=== PATIENT | female | born 1990 | race Caucasian/White ===

== ENCOUNTER 2024-05-04 09:55 | Emergency (ER) | payer OTHER, SELFPAY ==
[2024-05-04 10:00] VITALS: BP 141/80; PULSE 74; RESP 16; TEMP 36.6; O2SAT 94; BMI 48.6
--- OUTSIDE RECORDS SUMMARY | 2024-05-04 11:13 | XMS_ITS | Clinical Summary ---
Author Organization [facility] Address [address] [facility] [place] [address] Care Team Providers Care Loan Review Officer Name Role Phone Casandra Lopez PA-C Primary Care Provider [phone] Allergies Active Allergy Reactions Criticality Noted Date Comments Niacin Other (See Comments) 01/12/2018 Other reaction(s): Flushing Seasonal Allergies 02/04/2021 Shellfish Allergy 09/29/2016 Other reaction(s): Edema facial Medications Medication Sig Dispensed Refills Start Date End Date Status TRAZODONE HCL PO Take 50 mg by mouth At Bedtime Active acetaminophen-caffein e (EXCEDRIN TENSION HEADACHE) 500-65 MG TABS Take 2 tablets by mouth every 6 hours as needed for mild pain Active PROPRANOLOL HCL PO Take 160 mg by mouth every morning Extended release Active SERTRALINE HCL PO Take 200 mg by mouth every evening Active BusPIRone HCl (BUSPAR PO) Take 20 mg by mouth every evening Active Ezetimibe (ZETIA PO) Take 10 mg by mouth At Bedtime Active rosuvastatin (CRESTOR) 40 MG tablet Take 40 mg by mouth At Bedtime Active medroxyPROGESTERone (PROVERA) 10 MG tablet Take 20 mg by mouth 2 times daily Active Ferrous Sulfate 324 (65 Fe) MG TBEC Take 325 mg by mouth daily Active albuterol (PROAIR HFA/PROVENTIL HFA/VENTOLIN HFA) 108 (90 BASE) MCG/ACT Inhaler Inhale 1-2 puffs into the lungs every 2 hours as needed for shortness of breath / dyspnea or wheezing Active Active Problems No known active problems Social History Tobacco Use Types Packs/Day Years Used Date Smoking Tobacco: Never Smokeless Tobacco: Never Alcohol Use Standard Drinks/Week Comments Not Currently 0 (1 standard drink = 0.6 oz pur e alcohol) Adolescent Education Answer Date Record ed Getting School Help Needed Not on file 07/16 Sex and Gender Information Value Date Recorded Sex Assigned at Not on file Gender Identity Not on file Sexual Orientation Not on file Last Filed Vital Signs Vital Sign Reading Time Taken Comments Blood Pressure 158/65 02/04/2021 1:21 PM CDT Pulse 79 02/04/2021 1:21 PM CDT Temperature 36.5 ??C (97.7 ??F) 02/04/2021 1:21 PM CD T Respiratory Rate 16 02/04/2021 1:21 PM CDT Oxygen Saturation 97% 02/04/2021 1:21 PM CDT Inhaled Oxygen Concentration - - Weight 122.9 kg (271 lb) 02/04/2021 8:39 AM CDT Height 172 cm (5' 7.72) 02/04/2021 8:39 AM CDT Body Mass Index 41.55 02/04/2021 8:39 AM CDT Plan of Treatment Not on file Medical Devices Implanted Type Area Diversified Crops Farmworker Device Identifier Shelf Expiration Date Model / Serial / Lot Iud Contraceptive Device Mirena [id number] Implanted:Qty: 1 on 02/04/2021 by Radha Dover MD at [facility] Contraceptive Device N/A: Vagina TIMOTHY 06/15/2023 [id number] / / [id number] Care Teams Loan Review Officer Relationship Specialty Start Date End Date Casandra Lopez PA-C PCP - General 02/04/21
--- OUTSIDE RECORDS SUMMARY | 2024-05-04 11:13 | XMS_ITS | Data Portability ---
Author Organization [facility], [id number] Address [address] [place] [address] Assessment No assessment recorded. Plan of Treatment Reminders Order Date Submit Date Provider Last Modified By Organization Details Last Modified Time Details Appointments None recorded. Lab hemoglobin (Hb), blood [address] [facility], [address] [place], [address], 22:52:[address] [facility], [address] [place], [address], 15:41:06 Referral None recorded. Procedures None recorded. Surgeries None recorded. Imaging US, transvagina l 2020 021 [id number], [address], [place], [address], 17:45:16 Medication Orders Provera 10 mg tablet 2020 021 [id number], [address], [place], [address], 12:31:43 Provera 10 mg tablet 2020 021 [id number], [address], [place], [address], 12:31:43 Patient TargetsNo targets recorded. Patient InstructionsNo instructions recorded. Reason for Referral None Reported. Results Created Date Observation Date Name Description Value Unit Range Abnormal Flag LastModifiedBy Organization Detail LastModifiedTime 01/22/20 21 01/21/2021 hemog lobin (Hb), blood hemoglobin 8.6 gm/dL 12.0-1 6.0 low Not Available [facility] [address] [place], [address], 01/21/2021 22:52:30 02/19/20 21 02/18/2021 CBC WBC 6.0 K/uL 4.3-10 .8 Not Available [facility] [address] [place], [address], 02/18/2021 15:41:06 02/19/20 21 02/18/2021 CBC RBC 4.21 M/uL 4.20-5 .40 Not Available [facility] [address] [place], [address], 02/18/2021 15:41:06 02/19/20 21 02/18/2021 CBC hemoglobin 10.1 gm/dL 12.0-1 6.0 low Not Available [facility] [address] [place], [address], 02/18/2021 15:41:06 02/19/20 21 02/18/2021 CBC hematocrit 33.6 % 36.0-4 8.0 low Not Available [facility] [address] [place], [address], 02/18/2021 15:41:06 02/19/20 21 02/18/2021 CBC MCV 80 fL 80-100 Not Available [facility] [address] [place], [address], 02/18/2021 15:41:06 02/19/20 21 02/18/2021 CBC MCH 24 pg 27-33 low Not Available [facility] [address] [place], [address], 02/18/2021 15:41:06 02/19/20 21 02/18/2021 CBC MCHC 30 gm/dL 33-36 low Not Available [facility] [address] [place], [address], 02/18/2021 15:41:06 02/19/20 21 02/18/2021 CBC RDW 17.2 % 11.5-1 4.5 high Not Available [facility] [address] [place], [address], 02/18/2021 15:41:06 02/19/20 21 02/18/2021 CBC platelet count 267 K/uL 150-40 0 Not Available [facility] [address] [place], [address], 02/18/2021 15:41:06 02/19/20 21 02/18/2021 CBC MPV 10.7 6.5-12 Not Available [facility] [address], [address], 02/18/2021 15:41:06 01/29/20 21 US, trans vagin al No observ ation record ed. [email or web address] [address], [place], [address], 02/03/2021 09:49:36 Result Notes None recorded. 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 TRIMMING INSPECTOR 02/09/2021 23:58:39 09/15/20 20 Date of Last Pap Smear completed Jessica Will null, [facility] TRIMMING INSPECTOR 01/21/2021 16:05:04 10/16/19 18 Tonsillectomy completed Jessica Will null, [facility] TRIMMING INSPECTOR 01/21/2021 16:12:17 10/16/19 16 open stone operation on kidney or renal pelvis completed Jessica Will null, [facility] TRIMMING INSPECTOR 01/21/2021 16:12:07 10/16/19 08 extraction of wisdom tooth completed Jessica Will null, [facility] 01/21/2021 16:12:28 Imaging Results Imaging Date Name Status LastModified by Organization Details LastModified Time 01/28/2021 US, transvaginal completed [email or web address] [address], [place], [address], 02/03/2021 09:49:36 Procedure Notes None recorded. Medical Equipment None Reported. Allergies Allergen ID Allergen Name Allergen Category Reaction Reaction Severity Criticality Documentation Date Start Date Code Code System Note Provider Name and Address Organization Details Recorded Time niacin medicatio n flushing Not available Not available 01/21/2021 7393 RxNorm Jessica Will null, [facility] TRIMMING INSPECTOR 15:30:44 Medications Name Sig Start Date Stop Date Status Note LastModified by Organization Details LastModified Time bp monitor auto wri mis micr USE TO CHECK BLOOD PRESSURE 01/21 completed Not Available Not Available Not Available Mirena 21 mcg/24 hr (up to 8 years) 52 mg intrauterin e device Take by intrauter ine route. 2020 active Not Available Not Available Not Avai lable propranolol ER 160 mg capsule,24 hr,extended release Take 1 capsule by mouth once daily active Not Available Not Available No t Available trazodone 50 mg tablet Take 1 tablet by mouth at bedtime active Not Available Not Available No t Available sertraline 100 mg tablet Take 2 tablets by mouth once daily active Not Available Not Available No t Available phentermine 37.5 mg tablet TAKE 1/2 TABLET BY MOUTH DAILY IN THE MORNING 30 MINUTES BEFORE BREAKFAST . 01/21 completed Not Available Not Available Not Available buspirone 10 mg tablet Take 2 tablets by mouth 2 times daily active Not Available Not Available No t Available Provera 10 mg tablet take 1 tablet daily for 30 days 02/18 completed Not Available Not Available Not Available Ventolin HFA 90 mcg/actuati on aerosol inhaler Inhale 1-2 Puffs by mouth every 6 hours if needed. active Not Available Not Available No t Available ezetimibe 10 mg tablet TAKE ONE TABLET BY MOUTH DAILY active Not Available Not Available No t Available rosuvastati n 40 mg tablet TAKE ONE TABLET BY MOUTH AT BEDTIME active Not Available Not Available No t Available Vitals Date Recorded Body weight Body mass index (BMI) Body height Systolic blood pressure Diastolic blood pressure Provider Name and Address Organization Details Last Updated DateTime 01/21/2021 436124.4 9 g 44.2 kg/m2 170.18 cm 140 mm[Hg] 86 mm[Hg] Jessica Cedillo TRIMMING INSPECTOR 15:29:49 Date Recorded Body height Systolic blood pressure Diastolic blood pressure Provider Name and Address Organization Details Last Updated DateTime 01/28/2021 170.18 cm 120 mm[Hg] 84 mm[Hg] Jessica Cedillo TRIMMING INSPECTOR 01/28/2021 09:36:41 Date Recorded Body height Body mass index (BMI) Body weight Systolic blood pressure Diastolic blood pressure Provider Name and Address Organization Details Last Updated DateTime 02/18/2021 170.18 cm 43.1 kg/m2 474911.9 g 122 mm[Hg] 74 mm[Hg] Laura Carreon( TERM) [facility] [employer]IMMING INSPECTOR 10:44:15 Social History Question Answer Notes LastModified by Organizat ion Details LastModified Time Tobacco Smoking Status Never Smoker [facility]M[facility] INSPECTOR 01/21/2021 16:08:27 What Is Your Level Of Alcohol Consumption? Occasional 0-1dr/wk Information not available 01/21/2021 What Is Your Level Of Caffeine Consumption? Moderate 1c/day Information not available 01/21/2021 Which Illicit Or Recreational Drugs Have You Used? 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 None Information not available 01/21/2021 Mental Status None recorded. Family History Relationship Description Onset Age of this Age Resolved Age Notes Paternal Grandmother Malignant tumor of breast Father Depressive disorder Father Diabetes mellitus Un howard Father Hypertensive disorder Uncle Father Hypercholesterolemia Brother Depressive disorder Uncle Brother Hypercholesterolemia Maternal Grandfather Hypertensive disorder Maternal Grandfather Hypercholesterolemia Paternal Grandfather Hypertensive disorder Paternal Grandfather Hypercholesterolemia Maternal Grandmother Cerebrovascular accident Mother Disorder of thyroid gland Mother Hypercholesterolemia Medical History Condition Response Psych- Depression Y Urology- Stones Y Psych- Anxiety Disorder Y Neurology- Headaches/Migraines Y Endocrinology- Thyroid Problems Y Cardiology- High Cholesterol Y Pulmonary- Asthma Y Gynecological History Statement/Question Response Current Control Method None Date of Last Pap Smear 09/15/2020 Age at Menarche: 11 Date of Last Cholesterol Screening 09/15 Date of LMP 11/20/2020 Obstetrics History GPAL:G 0 P 0 0 0 0 Immunizations Vaccine Type Date Status Provider Name and Address Organization Details Recorded Time SARS-COV-2 (COVID-19) vaccine, UNSPECIFIED 11/16/2020 [facility] Ibarra TRIMMING INSPECTOR 01/21/2021 15:25:31 SARS-COV-2 (COVID-19) vaccine, UNSPECIFIED 10/16/2020 [facility] Ibarra TRIMMING INSPECTOR 01/21/2021 15:25:42 Past Encounters Encounter ID Performer Location Encounter Start Date Encounter Closed Date Diagnosis/Indication Diagnosis SNOMED-CT Code [id number] [facility]LLY MD [id number] ,[address] [place] [address] 01/21/2021 15:21:42 01/21/2021 16:40:31 Abnormal uterine bleeding 10603306801268 Obesity 920192590 History of Graves' disease 385441832239955 [id number] DAMON JOLLY MD [id number] [address] [place] [address] 01/28/2021 08:34:23 02/01/2021 17:45:15 Abnormal uterine bleeding 13626912384548 [id number] DAMON JOLLY MD [id number] [facility] [address] [place] [address] 01/28/2021 09:30:28 01/28/2021 15:38:58 Abnormal uterine bleeding 73526500951020 Obesity 314799451 [id number] DAMON JOLLY MD [id number] [facility] [address] [place] [address] 02/18/2021 10:36:12 02/18/2021 12:49:00 Anemia 338794599 Postoperative visit 2450 05403 Health Concerns Section Related Observation LastModified by Organization Detai ls LastModified Time None Recorded Concern Status LastModified by Organization Details LastModified Time None Recorded Advance Directives Directive None Recorded Payers Encounter Date Sequence Insurance Name Policy Number Policy Mayo Covered Member ID Mayo Member ID Guarantor Name 01/21/2021 1 PREFERREDONE (PPO) [id number] Celsa Tyson [id number] Celsa Tyson 01/28/2021 1 PREFERREDONE (PPO) [id number] Celsa Tyson [id number] Celsa Tyson 01/28/2021 1 PREFERREDONE (PPO) [id number] Celsa Tyson [id number] Celsa Tyson 02/18/2021 1 PREFERREDONE (PPO) [id number] Celsa Tyson [id number] Celsa Tyson Notes Date Note Type Note Provider Name and Address Organization Details Recorded Time 01/21/2021 text/html HPI Notes: Abnor mal Bleeding ([facility]) Reported by patient. Patient Relationship with Practice: new patient Presents for: a new evaluation Reason for visit: abnormal pattern bleeding Last Normal Menses: 12/2019 (one year ago) Frequency of Normal Menses: irregular Flow of Normal Menses: Duration: >7 days; Quantity: heavy; no menses x1 year, now has had bleeding x56 days Pattern of Abnormal Bleeding: heavy periods; bleeding between periods; Flow: heavy Bleeding requires: a pad/tampon change every 2 hours Abnormal bleeding has been present for: days; 2 months; 56 days Context: first episode of abnormal bleeding Contraceptive Method: nothing; not sexually active x5 yrs Diagnostic Testing: PAP smear up to date: up-to-date Associated Signs & Symptoms: dizziness; uncertain if symptoms due to recent start of weight-loss agent Previous and Current Treatments: none Modifying Factors: no modifying factors Notes: Previously regular periods. Last normal period was one year ago 12/2019. Period started in October for 20 days, then stopped x5 days, then restarted and has been bleeding since. Has passed clots the size of a baseball. Has had bleeding x56 days. Changing tampons every 2 hours. Was having to use two tampons at a time. At night using pads. Had physical 09/2020. TSH normal. Not sexually active x5 years. Prior to a year ago periods were very regular- was on OCPs on and off for acne. Even off control pills had regular periods. Was thinking of restarting control pills- but was told she couldn't due to migraines with aura. Started a weight loss regimen so now losing weight. Otherwise weight has been slowly increased over last 10 years. Grave's disease- 2019 went into remission and has not needed medications, last checked 4 months ago and was normal. [place] [address] [facility],[address], [place], [address], [place] [facility] TRIMMING INSPECTOR 01/21/2021 16:33:27 01/28/2021 text/html HPI Notes: 30yo G0 here for follow-up after ultrasound for abnormal uterine bleeding. 01/21/21 visit: Office visit for prolonged bleeding x56 days, heavy. Previously with regluat periods but then went almost a year without a period. Had been on OCPs on and off, had to stop due to migraine with aura. On a weight loss regimen as weight has increased over last 10 years. Hx Grave's disease but in remission, recent normal labs. Had physical 09/2020. TSH normal. Not sexually active x5 years. Started on provera and iron supplement. Hgb returned at 8.6. 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 Continuing on provera. Feeling less lightheaded today. US: 8.3 cm anteverted uterus with 14 mm EMS, possible 1.3 cm polyp with feeder vessel. Right ovary normal. Left ovary with 4.7 cm simple cyst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 Procedure Date: 02/04/21 Surgical Procedure: dilation and curettage; hysteroscopy; placement of Mirena IUD Pathology: surgical findings and pathology reviewed; Polyp was suspected, on hysteroscopy lining appeared diffusely thickened but no polyp seen. Pathology benign polyp, benign endometrium. Postoperative Symptoms: none; no fever; no chills; no fatigue; no shortness of breath; no chest pain; no nausea; no vomiting; no dysuria; no pelvic pain; no abnormal bleeding; minimal bleeding/discharge since surgery Postoperative Complications: none Notes: Very happy with decrease/cessation of bleeding [place] [id number] [address] [facility],[address], [place], [address], [place] [facility] TRIMMING INSPECTOR 02/18/2021 12:39:20 OBGyn Episode No OBEpisode recorded.
--- OUTSIDE RECORDS SUMMARY | 2024-05-04 11:13 | XMS_ITS | Clinical Summary ---
Author Organization [employer] [facility] Address [place], [place] [address] Care Team Providers Care Manager Clinical Applications Name Role Phone Rhina Hernandez MD Unavailable Patricia Flowers MD Unavailable Unavailable Edinson Burrell Unavailable [phone] Tara Allison WAREHOUSING TECHNICIAN Unavailable UnaDiann Henry RD Unavailable [phone] Tiffanie Bee Unavailable Liyah Pyle RD Unavailable Unavailab Carolina Alcaraz WAREHOUSING TECHNICIAN Unavailable Unavailable Casandra Lopez Unavailable [phone] Casandra Lopez Primary Care Provider [phone] Marj Ryder PROJECT DESIGN ENGINEER Unavailable Rachel Enriquez RD Unavailable Thuan Alexis RN Unavailable Becky Aquino RN Unavailable Allergies Active Allergy Reactions Criticality Noted Date Comments Niacin Flushing 01/12/2018 Levonorgestrel-Ethinyl Estrad *Unknown 02/02/2021 Shellfish Containing Products Edema 09/29/2016 facial Unlisted Allergen (Include Detail In Comments) Itching 04/13/2010 Seasonal allergies to pollen. Itchy eyes, runny nose and sneezing. Some fruits (bananas, pumpkin) - Itchy mouth Medications Medication Sig Dispensed Refills Start Date End Date Status cetirizine-pseudoephedri ne, 5-120 mg, (ZYRTEC-D) 5-120 mg tablet Take 1 tablet by mouth 2 times daily. 30 tablet 2 0 Active nhendco-mvusmathnzplx-fs ffeine, 250-250-65 mg, (EXCEDRIN MIGRAINE) 250-250-65 mg tablet Take 2 tablets by mouth every 6 hours if needed for Headache. Max acetaminophen dose: 4000mg in 24 hrs. DO NOT TAKE FOR 2 WEEKS POST OP 0 6 Active levonorgestrel intrauterine device (Mirena) 20 mcg/24 hours (6 yrs) 52 mg IUD Mirena 20 mcg/24 hours (6 yrs) 52 mg intrauterine device Take by intrauterine route. 1 Active blood-glucose meterIndications:New onset type 2 diabetes mellitus (HC) Dispense meter covered by patient's insurance. E11.9 NIDDM type II - Test 1 time/day. 1 Kit 3 Active blood sugar diagnostic stripIndications:New onset type 2 diabetes mellitus (HC) Dispense item covered by pt ins. E11.9 NIDDM type II - Test 1 time/day. 100 Each 3 3 Active lancetsIndications:New onset type 2 diabetes mellitus (HC) Dispense item covered by pt ins. E11.9 NIDDM type II - Test 1 time/day. 100 Each 3 3 Active semaglutide (OZEMPIC) 1 mg/dose (4 mg/3 mL) penIndications:New onset type 2 diabetes mellitus (HC) Inject 1 mg subcutaneous once weekly. 9 mL 1 4 Active albuterol HFA (PRO-AIR; VENTOLIN; PROVENTIL) 90 mcg/actuation inhalerIndications:Exerc ise-induced asthma Inhale 1-2 Puffs by mouth every 6 hours if needed for Wheezing 1st choice. 1 Each 3 4 Active azelastine 0.05% ophthalmic (OPTIVAR) 0.05 % ophthalmic solutionIndications:Tavo rgic conjunctivitis of both eyes Place 1 Drop into both eyes two times daily. 6 mL 1 4 Active busPIRone (BUSPAR) 10 mg tabletIndications:Deprfrancesca luis alberto with anxiety Take 2 Tablets (20 mg) by mouth two times daily. 360 Tablet 1 4 Active sertraline (ZOLOFT) 100 mg tabletIndications:Deprfrancesca luis alberto with anxiety Take 2 Tablets (200 mg) by mouth once daily. 180 Tablet 1 4 Active traZODone (DESYREL) 50 mg tabletIndications:Insomn ia, unspecified type Take 1 Tablet (50 mg) by mouth at bedtime. 90 Tablet 1 4 Active ezetimibe (ZETIA) 10 mg tabletIndications:Famili al hypercholesterolemia Take 1 Tablet (10 mg) by mouth once daily. 90 Tablet 4 Active rosuvastatin (CRESTOR) 40 mg tabletIndications:Famili al hypercholesterolemia Take 1 Tablet (40 mg) by mouth at bedtime. 90 Tablet 4 Active evolocumab (Repatha SureClick) 140 mg/mL subcutaneous pen injectorIndications:Hype rlipidemia, unspecified hyperlipidemia type Inject 1 mL (140 mg) subcutaneous every 2 weeks. 6 mL 4 Active Active Problems Patient Care Coordination No te Formatting of this note migh t be different from the original. Medical Weight Management program binder given to patient on 11/04/2020. [place] LPN 11/16/20 3:[address] consult order entered 11/04/20. MW UTD 07/23/18 291 (5'7; 45.63) Problem Noted Date Diagnosed Date Pap smear for cervical cancer screening 03/08/20 24 Overview: 02/2024 NIL/HPV negative. Plan: Pap/HPV due 02/2029. New onset type 2 diabetes mellitus 01/27/2023 FREDY (obstructive sleep apnea) 01/23/2023 Overview: On CPAP Morbid obesity with BMI of 50.0-59.9, adult 06/16 Insomnia 10/15/2021 Allergic conjunctivitis of both eyes 10/15/2021 History of Graves' disease 10/07/2020 Overview: Went into remission, labs normal Aug 2019 Depression with anxiety 10/07/2020 Allergic rhinitis 06/19/2013 Exercise-induced asthma 07/02/2012 Migraine headache 11/10/2009 Vitamin D deficiency 11/10/2009 Acne vulgaris 03/05/2009 Overview: Followed by Audrey Familial hypercholesterolemia Overview: Mook has had high Cholesterol since teenage years with highest LDL on our charts of 299 in 06/2011. She had achilles tendon xanthomas. + family history of severe (>95th percentile) hypercholesterolemia in her mother and brother. + family history of premature coronary artery disease as well. Her Estonian Lipid score is at least 12 (LDL 299, tendon xanthoma, first degree relative with severely high Cholesterol + maternal grandfather with premature coronary artery disease). Follows with Dr. Grayson Hernandez at [facility]. Resolved Problems Problem Noted Date Diagnosed Date Resolved Date Prediabetes 08/02/2022 12/06/2023 Weight gain 07/01/2022 12/06/2023 Graves disease 10/29/2018 10/07/2020 Morbid obesity with BMI of 45.0-49.9, adult 07/23/2018 12/06/2023 Major depressive disorder, r ecurrent episode, moderate 09/01/2014 10/07/2020 Generalized anxiety disorder 09/01/2014 10/07/2020 Abnormal TSH 06/30/2014 06/30/2014 Overview: History of abnormal TSH, but normal since at least 2008. Anemia 06/19/2013 06/30/2014 Overview: Normal since 2008 Mixed hyperlipidemia 07/11/2011 011 Depression with anxiety 04/27/201005/18 Varicella without mention of complication 04/13/2010 06/19/2013 Microcytosis 11/10/2009 06/30/2014 Thyroid function test abnormal 11/10/2009 06/19/2013 Thyroid function test abnormal 11/10/2009 06/30/2014 Bronchial asthma 05/11/2009 07/02/2012 Family history of high cholesterol 01/05/2022 Tonsillitis 10/07/2020 Encounters Date Type Department Care Team Description 04/08/2024 5:30 PM CDT Office Visit [facility] [address] [place] [address] 3, [place] Diabetes Class Telehealth (Virtual class 3) 03/25/2024 5:30 PM CDT Office Visit [facility] [address] [place] [address] 2, [place] Diabetes Class Telehealth (Virtual class 2) 03/25/2024 12:22 PM CDT - 03/25/2024 11:59 PM CDT Hospital Encounter [address] [address] Rhina Hernandez MD Familial hypercholesterolemi a; Bilateral lower extremity edema 03/25/2024 Travel 03/18/2024 5:30 PM CDT Office Visit [facility] [address] [place] [address] 1, [place] Diabetes Class Diabetes (Class 1) 03/14/2024 Refill [facility] [address] [place] [address] Rhina Hernandez MD Refill Request (Repatha) 03/06/2024 Orders Only [facility] Scanner 1 scan: (1-Ord) [facility], 03/06/2024 03/06/2024 Orders Only [facility] Scanner 1 scan: (1-Ord) [facility] , 03/06/2024 03/04/2024 Refill [facility] [address] [place] [address] Rhina Hernandez MD Refill Request (Crestor, Zetia) 03/04/2024 Orders Only [facility] [address] [place] [address] Rhina Hernandez MD <No scans attached> 02/27/2024 8:00 AM CDT Patient Outreach [facility] [address] [place] [address] Becky Aquino RN Telehealth (Virtual Visit - Diabetes Assessment - New Diagnosis Type 2 DM) 02/26/2024 Travel 02/23/2024 8:45 AM CDT Office Visit [facility] [address] [place] [address] Casandra Lopez PA Physical (Fasting ); Medication Management (refill) 02/23/2024 Travel 02/18/2024 Refill [facility] [address] [place] [address] Casandra Lopez PA Refill Request (Ozempic) from Last 3 Months Immunizations Name Administration Dates Next Due COVID-19 Vaccine Spikevax (M oderna 50mcg/0.5mL) 12YO+ [id number] Formula PF 08/11/2023 Covid-19 Vaccine (Unspecified) 11/16/2020,2020 DTP 01/07/1992, 1,1990,11/1989 DTaP 05/29/1995 HIB HbOC (HibTITER) 09/17/1991, 1,01/22/1991,10/17 Hepatitis A (Adult) 11/10/2009 Hepatitis A (Peds) 03/05/2009 Hepatitis B (Peds) 03/28/1997,07/01/1996, 996 Human Papilloma Virus Vaccine 10/26/2007, 007,04/23/2007 06/24/2007 Influenza Virus, Unspecified 07/07/2018,07/16/20 13,07/16/2013 Influenza, IIV3 (Age >=3 years) 07/14/2021 Influenza, IIV4 08/11/2023,,09/17/2020,06/17,07/06/2017,06/14/2016,07/15/20 15 Influenza, Injectable, Mdck, Quadrivalent, W/preservative 07/14/2021 MMR 05/29/1995,09/17/1991 Meningococcal Vaccine (Menactra) 04/23/2007 Oral Polio Vaccine 05/29/1995, 2,01/22/1991,10/17 Pneumococcal Conj 20-valent (Prevnar 20) 01/23/2023 Td (Age >=7 Years) 02/03/2003 Tdap 08/29/2019,06/22/2011 Tuberculin (PPD) 03/26/2018, 7,06/14/2016,06/17,06/03/2009 Family History Medical History Relation Name Comments Anxiety disorder Brother 1 Christofer Colon polyps Brother 1 Christofer Hyperlipidemia Brother 1 Christofer on meds No Known Problems Brother 2 Massimo Depression Father Kodi Diabetes Father Kodi Hyperlipidemia Father Kodi Hypertension Father Kodi Obesity Father Kodi Psychiatric illness Father Kodi anxiety Coronary artery disease Maternal Grandfather shira Heart Disease Maternal Grandfather shira heart attack in his 30s or 40s Hyperlipidemia Maternal Grandfather shira Hypertension Maternal Grandfather shira Stroke Maternal Grandmother Camille Alcoholism Maternal Uncle 1 Yinka Hyperlipidemia Maternal Uncle 1 Yinka Hyperlipidemia Maternal Uncle 2 Allergies Mother Becky Anxiety disorder Mother Becky Depression Mother Becky Diabetes Mother Becky Hyperlipidemia Mother Becky Hypertension Mother Becky Obesity Mother Becky Other Mother Becky mitral valve pr [place] Thyroid Disease Mother Becky Hypothyroidi sm Coronary artery disease Paternal Grandfather Giuseppe Heart attack Paternal Grandfather [place] in his 50-60s Hyperlipidemia Paternal Grandfather Giuseppe Hypertension Paternal Grandfather [place] Cancer-breast Paternal Grandmother Risco Clotting disorder Paternal Grandmother Risco Obesity Paternal Grandmother Risco Other Paternal Grandmother Risco Resp. F ailure Stroke Paternal Grandmother Risco Diabetes Paternal Uncle Nick Type II Anesthesia Problem No Family History Blood Disease No Family History Relation Name Status Comments Brother 1 Christofer Alive Brother 2 Massimo Alive Father Kodi Alive Maternal Grandfather shira (Age 35) Maternal Grandmother Camille (Age 72) Maternal Uncle 1 Yinka Maternal Uncle 2 Mother Becky Alive Paternal Grandfather [place] (Age 67) Paternal Grandmother Risco (Age 72) Paternal Uncle Nick Social History Tobacco Use Types Packs/Day Years Used Date Smoking Tobacco: Never Passive Smoke Exposure: Yes Smokeless Tobacco: Never Tobacco Cessation:Counseling Given: Not Answered Comments:uncle smokes outside Alcohol Use Standard Drinks/Week Comments Yes 0 (1 standard drink = 0.6 oz pure alcohol) every few months, 1-2 drinks per 24h PHQ-2 Answer Date Recorded PHQ-2 TOTAL SCORE 4 02/23/2024 Social Connections Answer Date Recorded Frequency of Communication with Friends and Fami ly Not on file 02/14/2024 Financial Resource Strain Answer Date R ecorded Difficulty of Paying Living Expenses 3 01/23/2023 Difficulty of Paying Living Expenses Not on file 01/23/2023 Food Insecurity Answer Date Recorded Worried About Running Out of Food in the Last Ye ar 1 01/23/2023 Transportation Needs Answer Date Record ed Lack of Transportation (Medical) 1 01/23/2023 Housing Stability Answer Date Recorded Unable to Pay for Housing in the Last Year 1 01/23/2023 Sex and Gender Information Value Date Recorded Sex Assigned at Female 05/18/2021 11:42 PM CDT Gender Identity Female 05/18/2021 11:42 PM CDT Sexual Orientation Straight 05/18/2021 11 :42 PM CDT Obstetrics History Para Term AB IAB SAB Ectopic Multiple Livin g Live Births 0 0 0 0 0 0 0 0 0 0 Last Filed Vital Signs Vital Sign Reading Time Taken Comments Blood Pressure 108/57 02/23/2024 8:52 AM CDT Pulse 81 02/23/2024 8:52 AM CDT Temperature 37.3 ??C (99.1 ??F) 03/02/2022 8:08 AM CD T Respiratory Rate 16 03/20/2023 11:28 AM CDT Oxygen Saturation 96% 01/23/2023 7:41 AM CDT Inhaled Oxygen Concentration - - Weight 153.5 kg (338 lb 8 oz) 02/23/2024 8:52 AM CDT Height 170 cm (5' 6.93) 02/23/2024 8:52 AM CDT Body Mass Index 53.13 02/23/2024 8:52 AM CDT Plan of Treatment Upcoming Encounters Date Type Department Care Team (Late st Contact Info) Description 05/13/2024 8:15 AM CDT Orders Only [facility] [address] [place] [address] 05/15/2024 8:00 AM CDT Office Visit [facility] [address] [facility] [place] [address] Karen Muñoz, ROCHELLE [address] [place] [address] 07/02/2024 4:00 PM CDT Office Visit [facility] [place] [address] [place] [phone] Khadra Wells, WAREHOUSING TECHNICIAN [address] [place], [place] [id number] Health Maintenance Due Date Last Done Comments Influenza for age 9-49 06/16/2024 3, 09/07/2022, 07/14/2021, Additional history exists BMI (ht and wt on same day) for age 18+ 02/22/2025 02/23/2024, 08/11/2023, 01/23/2023, Additional history exists Depression screening for age 12+ 02/22/2025 02/23/2024, 08/11/2023, 01/23/2023, Additional history exists Pap test for age 21-65 02/22/2029 , 02/23/2024, 10/07/2020, Additional history exists Tetanus booster 08/29/2029 08/29/2019, 04/2011, 02/03/2003 Hepatitis B series for Diabetes Completed 03/28/1997, 07/01/1996, 05/30/1996 Tdap Completed 08/29/2019, 06/22/2011 HIV for age 15-65 Completed 01/23/2023 Hepatitis C screening for ag e 18-79 Completed 01/23/2023 Pneumococcal series for age 6-64 Completed 01/24/20 COVID-19 vaccine series Completed 08/11/20, 11/16/2020, 10/16/2020 Procedures Procedure Name Priority Date/Time Associated Diagnosis Comments ECHO TTE COMPLETE W CONTRAST Routine 03/25/2024 1:24 PM CDT Familial hypercholesterolemia Bilateral lower extremity edema SCAN-EYE EXAM 03/06/2024 12:00 AM CDT SCAN-EYE EXAM 03/06/2024 12:00 AM CDT BASIC METABOLIC PANEL Routine 02/23/2024 9:34 AM CDT Annual physical exam New onset type 2 diabetes mellitus (HC) HEMOGLOBIN A1C Routine 02/23/2024 9:34 AM CDT New onset type 2 diabetes mellitus (HC) SPANISH SPEAKING BABYSITTER THIN PREP PAP SCREEN IMAGED Routine 02/23/2024 9:20 AM CDT Pap smear for cervical cancer screening HPV THIN PREP Routine 02/23/2024 9:20 AM CDT Pap smear for cervical cancer screening LC HIV-1/O/2, 4TH GENERATION Routine 01/23/2023 9:07 AM CDT Screening for HIV (human immunodeficiency virus) LC HCV ANTIBODY RFX TO QUANT PCR Routine 01/23/2023 9:07 AM CDT Encounter for hepatitis C screening test for low risk patient from Last 3 Months or Most Recently Relevant to Health Maintenance Results * ECHO TTE COMPLETE W CONTRAST (03/25/2024 1:24 PM CDT) EJECTION FRACTION 60-65% PROSOLV Anatomical Region Laterality Modality Ultrasound 03/25/2024 12:3 7 PM CDT Narrative 03/25/2024 4:56 PM CDT [address], [place] [address] Main: ? Transthoracic Echo Report MOOK TYSON ID: [id number] Age: 33 : 1990 Ordering Provider: RHINA HERNANDEZ Exam Date: 03/25/2024 12:37 Gender: F Community Health Nurse: JUAN Height: 67 in BSA: 2.53 m?? BP: 114 / 72 Weight: 338 lbs BMI: 52.9 kg/m?? HR: 71 Location: [facility] Rhythm: Normal Sinus Rhythm Procedure Components: 2D imaging with contrast, Color Doppler, Spectral Doppler Indications: Bilateral lower extremity edema; Familial hypercholesterolemia Technical Quality: Fair, Poor Contrast: Definity Constrast Dose (ml): .75 [facility]#: [id number] Final Conclusion Previous Study: 01-02-15 1. Technically challenging echocardiogram. 2. Borderline left ventricular chamber enlargement. Borderline left ventricular wall thickness. No regional wall motion abnormalities. Normal left ventricular systolic function. Estimated left ventricular ejection fraction is 60-65%. 3. Normal right ventricular chamber size. Normal right ventricular systolic function. Right ventricular systolic pressure cannot be estimated due to inability to detect peak tricuspid regurgitation Doppler velocity. 4. No significant valvular heart disease. 5. Normal inferior vena cava with normal inspiratory collapse consistent with normal right atrial pressure. 6. No pericardial effusion. 7. Aortic sinus of Valsalva is normal in size (3.1 cm, ZScore = -0.97). Normal indexed ascending aorta dimension (3.2 cm, 1.3 cm/m??). 8. When compared to the previous echocardiographic report of 01-02-15, there has been no significant change. Estimated EF: 60-65% FINDINGS Left Ventricle Borderline left ventricular chamber enlargement. Borderline left ventricular wall thickness. No regional wall motion abnormalities. Normal left ventricular systolic function. Estimated left ventricular ejection fraction is 60- 65%. Diastolic Function Normal left ventricular diastolic function. Right Ventricle Normal right ventricular chamber size. Normal right ventricular systolic function. Right ventricular systolic pressure cannot be estimated due to inability to detect peak tricuspid regurgitation Doppler velocity. Left Atrium Normal left atrial size. Left atrial volume index is 26.5 ml/m??. Right Atrium Normal right atrial size. Atrial Septum Intact atrial septum. No evidence of inter-atrial shunt by color flow Doppler. Aortic Valve Probably trileaflet aortic valve. No aortic valve stenosis. No aortic valve regurgitation. Mitral Valve Normal mitral valve. No mitral valve regurgitation. Tricuspid Valve Normal tricuspid valve. Trivial tricuspid valve regurgitation. Pulmonic Valve Normal pulmonary valve. No pulmonary valve stenosis. No pulmonary valve regurgitation. Pericardium No pericardial effusion. Aorta Aortic sinus of Valsalva is normal in size (3.1 cm, ZScore = -0.97). Normal indexed ascending aorta dimension (3.2 cm, 1.3 cm/m??). Inferior Vena Cava Normal inferior vena cava with normal inspiratory collapse consistent with normal right atrial pressure. MEASUREMENTS ??(Male / Female) Normal Values 2D MEASUREMENTS AND LV FUNCTION IVS Diastolic Thickness ? 1.1 cm ?< 1.1 cm / < 1.0 cm LV Diastolic Diameter PLAX ?5.5 cm ?4.2 - 5.9 / 3.9 - 5.3 cm LV Diastolic Diameter Index ? 2.18 cm/m?? LVPW Diastolic Thickness ?1 cm ?< 1.1 cm / < 1.0 cm LV Systolic Diameter PLAX ? 3.7 cm LV Systolic Diameter Index ?1.46 cm/m?? LVOT Diameter ? 2.4 cm LVOT Cardiac Output ? 9.54 l/min LVOT Cardiac Index ?3.43 l/min??m?? LVOT Stroke Volume ?134 ml Stroke Volume Index ? 48.3 ml/m?? LA Volume MOD BP ?67 ml LA Volume Index MOD BP ?26.5 ml/m?16 - 34 ml/m?? LV Mass ? 227 g LV Mass Index ? 84.5 g/m?? Sinuses of Valsalva Diameter(d) ?? 3.1 cm Ascending Aorta Diameter(s) ? 3.2 cm IVC Diameter Expiration ? 1.5 cm Ascending Aorta Index ? 1.27 cm/m?? M MODE TAPSE MM ?2.4 cm DIASTOLOGY Mitral E Point Velocity ? 0.913 m/sec ? 0.70 - 1.02 m/sec Mitral A Point Velocity ? 0.51 m/sec ?0.06 - 1.06 m/sec Mitral E to A Ratio ? 1.79 ?1.1 - 2.1 MV Deceleration Time ?218 msec ?167 - 231 msec LV E' Lateral Velocity ?0.117 m/sec Mitral E to LV E' Lateral Ratio ?? 7.8 LV E' Septal Velocity ? 0.0957 m/sec Mitral E to LV E' Septal Ratio ?9.54 AORTIC VALVE AV Peak Velocity ?1.66 m/sec ?< 2.0 m/sec AV Peak Gradient ?11 mmHg AV Mean Gradient ?6 mmHg AV Velocity Time Integral ? 33.7 cm LVOT Peak Velocity ?1.35 m/sec LVOT Velocity Time Integral ? 29.7 cm AV Area Cont Eq vti ? 3.99 cm?? AV Area Cont Eq pk ?3.68 cm?? AV Dimensionless Index ?0.881 TRICUSPID VALVE AND ESTIMATED PRESSURES Right Atrial Pressure ? 3 mmHg HCM DATA LVOT MERY (r) ?7.29 mmHg Aortic Root ZScore: -0.97 Wing Varner MD [facility] Accredited Site (Electronically Signed) Final Date: 25 March 2024 16:55 ICD-10 Codes: R60.0; E78.01 Procedure Note Wing Varner MD - 03/25/[address], [place] [address] Main: Transthoracic Echo Report MOOK TYSON ID: [id number] Age: 33 : 1990 Ordering Provider:RHINA HERNANDEZ Exam Date: 03/25/2024 12:37 Gender: F Community Health Nurse: [facility] Height: 67 in BSA: 2.53 m?? BP: 114 / 72 Weight: 338 lbs BMI: 52.9 kg/m?? HR: 71 Location: [facility] Rhythm: Normal SinusRhythm Procedure Components: 2D imaging with contrast, Color Doppler, SpectralDoppler Indications: Bilateral lower extremity edema; Familialhypercholesterolemia Technical Quality: Fair, Poor Contrast: Definity Constrast Dose (ml): .75 [facility]#: [id number] Final Conclusion Previous Study: 01-02-15 1. Technically challenging echocardiogram. 2. Borderline left ventricular chamber enlargement. Borderline leftventricular wall thickness. No regional wall motion abnormalities. Normal left ventricular systolic function. Estimated left ventricularejection fraction is 60-65%. 3. Normal right ventricular chamber size. Normal right ventricularsystolic function. Right ventricular systolic pressure cannot be estimated due to inability to detect peak tricuspid regurgitation Dopplervelocity. 4. No significant valvular heart disease. 5. Normal inferior vena cava with normal inspiratory collapse consistentwith normal right atrial pressure. 6. No pericardial effusion. 7. Aortic sinus of Valsalva is normal in size (3.1 cm, ZScore = -0.97).Normal indexed ascending aorta dimension (3.2 cm, 1.3 cm/m??). 8. When compared to the previous echocardiographic report of 01-02-15,there has been no significant change. Estimated EF: 60-65% FINDINGS Left Ventricle Borderline left ventricular chamber enlargement.Borderline left ventricular wall thickness. No regional wall motion abnormalities. Normal left ventricular systolic function.Estimated left ventricular ejection fraction is 60- 65%. Diastolic Function Normal left ventricular diastolic function. Right Ventricle Normal right ventricular chamber size. Normal rightventricular systolic function. Right ventricular systolic pressure cannot be estimated due to inability to detect peak tricuspidregurgitation Doppler velocity. Left Atrium Normal left atrial size. Left atrial volume index is 26.5ml/m??. Right Atrium Normal right atrial size. Atrial Septum Intact atrial septum. No evidence of inter-atrial shunt bycolor flow Doppler. Aortic Valve Probably trileaflet aortic valve. No aortic valve stenosis.No aortic valve regurgitation. Mitral Valve Normal mitral valve. No mitral valve regurgitation. Tricuspid Valve Normal tricuspid valve. Trivial tricuspid valveregurgitation. Pulmonic Valve Normal pulmonary valve. No pulmonary valve stenosis. Nopulmonary valve regurgitation. Pericardium No pericardial effusion. Aorta Aortic sinus of Valsalva is normal in size (3.1 cm, ZScore =-0.97). Normal indexed ascending aorta dimension (3.2 cm, 1.3 cm/m??). Inferior Vena Cava Normal inferior vena cava with normal inspiratorycollapse consistent with normal right atrial pressure. MEASUREMENTS (Male / Female) Normal Values 2D MEASUREMENTS AND LV FUNCTION IVS Diastolic Thickness 1.1 cm < 1.1 cm / < 1.0cm LV Diastolic Diameter PLAX 5.5 cm 4.2 - 5.9 / 3.9 -5.3 cm LV Diastolic Diameter Index 2.18 cm/m?? LVPW Diastolic Thickness 1 cm < 1.1 cm / < 1.0cm LV Systolic Diameter PLAX 3.7 cm LV Systolic Diameter Index 1.46 cm/m?? LVOT Diameter 2.4 cm LVOT Cardiac Output 9.54 l/min LVOT Cardiac Index 3.43 l/min??m?? LVOT Stroke Volume 134 ml Stroke Volume Index 48.3 ml/m?? LA Volume MOD BP 67 ml LA Volume Index MOD BP 26.5 ml/m?? 16 - 34 ml/m?? LV Mass 227 g LV Mass Index 84.5 g/m?? Sinuses of Valsalva Diameter(d) 3.1 cm Ascending Aorta Diameter(s) 3.2 cm IVC Diameter Expiration 1.5 cm Ascending Aorta Index 1.27 cm/m?? M MODE TAPSE MM 2.4 cm DIASTOLOGY Mitral E Point Velocity 0.913 m/sec 0.70 - 1.02m/sec Mitral A Point Velocity 0.51 m/sec 0.06 - 1.06m/sec Mitral E to A Ratio 1.79 1.1 - 2.1 MV Deceleration Time 218 msec 167 - 231 msec LV E' Lateral Velocity 0.117 m/sec Mitral E to LV E' Lateral Ratio 7.8 LV E' Septal Velocity 0.0957 m/sec Mitral E to LV E' Septal Ratio 9.54 AORTIC VALVE AV Peak Velocity 1.66 m/sec < 2.0 m/sec AV Peak Gradient 11 mmHg AV Mean Gradient 6 mmHg AV Velocity Time Integral 33.7 cm LVOT Peak Velocity 1.35 m/sec LVOT Velocity Time Integral 29.7 cm AV Area Cont Eq vti 3.99 cm?? AV Area Cont Eq pk 3.68 cm?? AV Dimensionless Index 0.881 TRICUSPID VALVE AND ESTIMATED PRESSURES Right Atrial Pressure 3 mmHg HCM DATA LVOT MERY (r) 7.29 mmHg Aortic Root ZScore: -0.97 Wing [facility] Accredited Site (Electronically Signed) Final Date: 25 March 2024 16:55 ICD-10 Codes: R60.0; E78.01 Rhina Hernandez MD ECHO ORD * SCAN-EYE EXAM (03/06/2024 12:00 AM CDT) Scanner OTHER * SCAN-EYE EXAM (03/06/2024 12:00 AM CDT) Scanner OTHER * (ABNORMAL) HEMOGLOBIN A1C MONITORING (POCT) (02/23/2024 9:34 AM CDT) HEMOGLOBIN A1C MONITORING (POCT) 6.7(H) <=6.4 % 02/23/2024 9:44 AM CDT [facility] Blood BLOOD SPECIMEN / Unknown Venipuncture / Unknown 02/23/2024 9:34 AM CDT 02/23/2024 9:34 AM CDT Narrative [facility] - 02/23/2024 9:44 AM CDT ? (<=6.9%) ? Indicates good control ? (7.0% to 7.9%) ? Indicates fair control ? (>=8.0%) ? Indicates poor control ?? NOTE: ??These thresholds are guidelines and ?individual targets may vary. Falsely low levels may be seen with: Recent Transfusion, Recent Significant Blood Loss, Hemolytic Diseases, or Falsely elevated levels may be seen with: Untreated Anemias, Splenectomy ? Casandra BYRD CHEMISTRY [facility] [address] [place] [address] * (ABNORMAL) BASIC METABOLIC PANEL (02/23/2024 9:34 AM CDT) SODIUM 139 136 - 145 mmol/L 02/23/2024 6:01 PM CDT [facility] POTASSIUM 4.4 3.5 - 5.1 mmol/L 02/23/2024 6:01 PM T [facility] CHLORIDE 103 98 - 107 mmol/L 02/23/2024 6:01 PM T [facility] CO2,TOTAL 24 22 - 29 mmol/L 02/23/2024 6:01 PM CDT [facility] ANION GAP 12 5 - 18 02/23/2024 6:01 PM T [facility] GLUCOSE 128(H) 70 - 99 mg/dL 02/23/2024 6:01 PM T [facility] CALCIUM 9.5 8.6 - 10.0 mg/dL 02/23/2024 6:01 PM T [facility] BUN 7 6 - 20 mg/dL 02/23/2024 6:01 PM T [facility] CREATININE 0.75 0.50 - 0.90 mg/dL 02/23/2024 6:[address] [facility] BUN/CREAT RATIO 9(L) 10 - 20 6:01 PM T [facility] eGFR >90 >90 mL/min/1.7 3m2 02/23/2024 6:01 PM [facility] Comment:As of 2021, eG FR is calculated by the CKD-EPI creatinine equation without race adjustment. ??eGFR can be influenced by muscle mass, exercise, and diet. ??The reported eGFR is an estimation only and is only applicable if the renal function is stable. Blood BLOOD SPECIMEN / Unknown Venipuncture / Unknown 02/23/2024 9:34 AM CDT 02/23/2024 9:34 AM CDT Casandra BYRD CHEMISTRY [facility] [address] [place] [address], * SPANISH SPEAKING BABYSITTER THIN PREP PAP SCREEN IMAGED (02/23/2024 9:20 AM CDT) Case Report Gynecologic Cytology Report ? Case: [id number] ? Authorizing Provider: ??Casandra Lopez PA ? Collected: ? 02/23/2024 0920 ? Ordering Location: ? [facility] ?Received: ?02/23/2024 0946 ? [facility] ? First Screen: ?Baccam, Minie ? Specimen: ?SPANISH SPEAKING BABYSITTER ThinPrep Vial Screening, Cervical ? 03/06/2024 3:33 PM CDT [facility] INTERPRETATION/ RESULT NEGATIVE FOR INTRAEPITHELIAL LESION OR MALIGNANCY (NIL) (none) 03/06/2024 3:33 PM CDT [facility] IMEN ADEQUACY Satisfactory for evaluation Endocervical component present 03/06/2024 3:33 PM CDT [facility] HPV REQUEST HPV and PAP 03/06/2024 3:33 PM CDT [facility] Date of LMP n/a 03/06/2024 3:33 PM CDT [facility] Last Pap Date 10/07/20 03/06/2024 3:33 PM CDT [facility] Last Pap Result NIL 3:33 PM CDT [facility] Abnormal Pap or Maxwell Bx in last 5 years No 03/06/2024 3:33 PM CDT [facility] Menstrual Status Hormonally Suppressed 03/06/2024 3:[address] [facility] Maxwell Bx Done Today No 03/06/2024 3:[address] [facility] Additional Information None given 03/06/2024 3:33 PM CDT [facility] Comment: Cytology is screened at [facility] - [address], [place] [address] and [facility] - [address] [place] [address] and [facility] - [address] [place] [address] Interpreted at [facility] - [address], [place] [address] Automated Review Successful 03/06/2024 3:33 PM CDT [facility] Comment:Specimen processed s uccessfully by automated cart attendant device, ThinPrep Imaging System, [employer] ANCILLARY TESTING SPANISH SPEAKING BABYSITTER HPV Ordered, Please see separate report 03/06/2024 3:[address] [facility] Note The pap test is a screening technique, not a diagnostic procedure. It is used primarily to screen for squamous cancers and precursor lesions. Published studies have shown that it is subject to both false negative and false positive results. The pap test should not be used as the sole means to diagnose or exclude pre-malignant and malignant lesions. 03/06/2024 3:[address] [facility] Other (Cervical) Non-Blood / Unknown 02/23/2024 9:20 AM CDT 02/23/2024 9:46 AM CDT Casandra BYRD PATHOLOGY/CYTOLOGY [facility] [address] [place] [address], * HPV HIGH RISK (02/23/2024 9:20 AM CDT) TYPE 16 Negative Negative 02/27/2024 4:53 PM CDT [facility] TYPE 18 Negative Negative 02/27/2024 4:53 PM CDT [facility] OTHER HIGH RISK TYPES Negative Negative 02/27/2024 4:53 PM CDT [facility] Other (Cervical) Non-Blood / Unknown 02/23/2024 9:20 AM CDT 02/26/2024 9:29 AM CDT Narrative [facility] - 02/27/2024 4:53 PM CDT HPV types 16, 18, 31, 33, 35, 39, 45, 51, 52, 56, 58, 59, 66 and 68 DNA were undetectable or below the pre-set threshold. Methodology: Tez Armando 4800 HPV Test Casandra BYRD MICROBIOLOGY Performing Organization Address City/[facility] Co de Phone Number [facility] [address] [place] [address], * LC HCV ANTIBODY RFX TO QUANT PCR (01/23/2023 9:07 AM CDT) HCV Ab Non Reactive Non Reactive 01/25/2023 10:07 PM CDT [facility] Blood BLOOD SPECIMEN / Unknown Venipuncture / Unknown 01/23/2023 9:07 AM CDT 01/23/2023 9:08 AM CDT Narrative [facility] - 01/25/2023 10:07 PM CDT Performed at: ??[address] ??[id number] Horse Racer: Prabhu Patel MD, Phone: ??[phone] Khadra Garcia MD LABORATORY [facility] ([facility]) [address] [place] [address] * LC HIV-1/O/2, 4TH GENERATION (01/23/2023 9:07 AM CDT) HIV Scr 4th Gen Non Reactive Non Reactive 01/25/2023 10:07 PM CDT [facility] Comment: HIV Negative HIV-1/HIV-2 antibodies and HIV-1 p24 antigen were NOT detected. There is no laboratory evidence of HIV infection. Blood BLOOD SPECIMEN / Unknown Venipuncture / Unknown 01/23/2023 9:07 AM CDT 01/23/2023 9:08 AM CDT Narrative [facility] - 01/25/2023 10:07 PM CDT Performed at: ??[address] ??[id number] Horse Racer: Prabhu Patel MD, Phone: ??[phone] Khadra Garcia MD LABORATORY Performing Organization Address City/[facility]/ZIP Co de Phone Number [facility] ([facility]) [address] [place] [address] from Last 3 Months or Most Recently Relevant to Health Maintenance Advance Directives * Full Code (Latest Code Status on File) Date Activated Date Inactivated Comments 09/30/2016 6:38 AM 10/04/2016 3:58 PM * Full Code Date Activated Date Inactivated Comments 02/25/2015 6:07 AM 02/25/2015 4:21 PM Care Teams Manager Clinical Applications Relationship Specialty [place] [address] [place] [address] PCP - General Physician Meat Inspector 10/26/20 Rhina Hernandez MD [address] [place] [address] Consulting Physician Cardiovascular Disease 12/23/14 Patricia Flowers MD Neurology 07/16/18 Edinson Burrell [address] [address] Dermatology 07/16/18 Tara Allison NP [address] [address] Consulting Physician Nurse Practitioner 07/23/[address] [place] [address] Registered Dietitian Air Cargo Specialist Supervisor 10/29/18 Tiffanie Bee PA [address] [place] [address] Physician's Meat Inspector Cardiovascular Disease 04/22/[address] [place] [address] Registered Dietitian Air Cargo Specialist Supervisor 10/28/20 Carolina Acevedo NP [address] [place] [address] Nurse Practitioner Nurse Practitioner - Family 10/28/20 Casandra Lopez PA [address] [place] [address] Physician's Meat Inspector Physician Meat Inspector 10/26/20 Marj Ryder CNS [address] [facility] [place] [address] Clinical Nurse Specialist 07/01/22 Rachel Enriquez, RD [address] [facility] [address] [place], [place] [address] Air Cargo Specialist Supervisor 07/01/22 Thuan Alexis, RN [address] [facility] [place] [address] Registered Nurse 07/01/22 Becky Aquino, RN [address] [place] [address] Investigative Research Specialist Registered Nurse 02/27/24 08/29/24
--- OUTSIDE RECORDS SUMMARY | 2024-05-04 11:13 | XMS_ITS | Referral Summary ---
Author Organization [place] [facility] Address [address] [place] [address] Care Team Providers Care Inventory Checker Name Role Phone Casandra Lopez PA-C Primary Care Provider [phone] Allergies Active Allergy Reactions Criticality Noted Date [...] on file Medical Devices Implanted Type Area Medical Typist Device Identifier Shelf Expiration Date Model / Serial / Lot Iud Contraceptive Device Mirena [id number] Implanted:Qty: 1 on 02/04/2021 by Radha Dover MD at [facility] Contraceptive Device N/A: Vagina TIMOTHY 06/15/2023 [id number] / / [id number] Care Teams Inventory Checker Relationship Specialty Start Date End Date Casandra Lopez PA-C PCP - General 02/04/21
--- NOTE | 2024-05-04 11:23 | ED.GENADULT ---
HPI - General Adult General Date Seen: 05/04/24 Chief complaint: Nausea/Vomiting Stated complaint: vomiting & diarrhea Time Seen by Provider: 05/04/24 10:39 Source: patient Mode of arrival: ambulatory Limitations: no limitations History of Present Illness HPI narrative: Patient is a 33-year-old woman who comes in with vomiting and diarrhea which she believes is related to Ozempic. She has been on it for few months, reports that initially she had done well but then the pharmacy was out of it for couple of weeks so she was not using it. Last week she started back on it and had 4 days of vomiting and diarrhea afterward. She did not seek medical attention or discussed that with her doctor at that time. She took her 2nd dose on Monday and then overnight night started having vomiting and diarrhea again. She does not have abdominal pain. She denies fevers, rashes, bloody stools, travel, concerning water sources or foods. Related Data Home Medications ?Medication ?Instructions ?Recorded ?Confirmed albuterol sulfate 90 mcg/actuation 2 puff inhalation 08/04/22 08/04/22 aerosol inhaler (Ventolin HFA) azelastine 0.05 % eye drops drp ophthalmic (eye) 08/04/22 08/04/22 buspirone 10 mg tablet 10 mg PO 08/04/22 08/04/22 cefuroxime axetil 500 mg tablet 500 mg PO 08/04/22 08/04/22 ezetimibe 10 mg tablet 10 mg PO 08/04/22 08/04/22 rosuvastatin 40 mg tablet 40 mg PO 08/04/22 08/04/22 sertraline 100 mg tablet 100 mg PO 08/04/22 08/04/22 trazodone 50 mg tablet 50 mg PO 08/04/22 08/04/22 semaglutide 1 mg/dose (4 mg/3 mL) 1 mg subcut 05/04/24 subcutaneous pen injector (Ozempic) Allergies Allergy/AdvReac Type Severity Reaction Status Date / Time No Known Drug Allergies Allergy Verified 08/04/22 12:32 Review of Systems Status of ROS: Reports: 10 or more systems reviewed and unremarkable except as noted in History and below PFSH PFSH Social History Smoking Status: Never smoker Exam Narrative: Exam Narrative: Vital signs as noted above. In general, an alert, well-appearing patient. Head: Normocephalic, atraumatic. Eyes: Pupils are equal reactive. Extraocular movements are full. Conjunctivae are normal. ENT: Mucous membranes are moist. Throat is normal. Neck: Supple without lymphadenopathy. Heart: Regular rate and rhythm. No murmur or rub. Lungs: Clear bilaterally. No increased work of breathing, crackles or wheezes. Abdomen: Soft and nontender. No organomegaly. Extremities: Well perfused. No edema. No calf tenderness. Pulses intact. Neurologic: Patient is alert and oriented to person and place. Speech is fluent. Face is symmetric. Moves all extremities equally. Affect: Normal. Skin: Warm and dry. Well perfused. Const: Vital Signs, click to edit/add: Vital Signs - 24 hr 05/04/24 10:00 05/04/24 12:17 Temperature 97.8 F Pulse Rate [Pulse Oximeter] 74 74 Respiratory Rate 16 16 Blood Pressure [Ri ght Upper Arm] 141/80 H 118/58 L Pulse Oximetry 94 93 Oxygen Delivery Me thod Room Air Room Air Documenting provider has reviewed patient's vital signs: yes Course Course ED Course: Overall, given recurrence of symptoms twice now with Ozempic injection, would suspect this is the cause of her symptoms, but will check some labs, supply requirements officer dehydration, give some fluids and Zofran. Abdominal exam is benign, I do not anticipate needing imaging unless labs are concerning. Patient had 2 L of fluid was ultimately able to provide a urine sample which is negative. Her white blood cell count is essentially normal at 11.1, she does have eosinophilia noted today. It looks as if this can be in rare cases associated with his epic. Her hemoglobin and platelets are normal. Electrolytes are normal, BUN is 9 and creatinine is 0.7. Blood sugars 129. LFTs are normal, CRP minimally elevated at 1.6. test negative. She has had no further vomiting. Has a little bit of persistent nausea but was able to keep some fluids down. I think it is reasonable to let her go home, with symptoms last week and this week following Ozempic injection I do think this is the most likely cause for her symptoms. I have asked her to discuss this further with her prescribing doctor as to whether she wants to continue the Ozempic or not. Recommend clear liquids until she is feeling improved and then can advance diet as able. Return for worsening symptoms such as severe abdominal pain or fevers, persistent vomiting despite treatment. Recommended that she discuss the eosinophilia with her primary doctor so that that can be followed. Vital Signs Vital signs: Initial Vital Signs Temperature 97.8 F 05/04/24 10:00 Temperature Source Temporal Artery Scan 05/04/24 10:00 Pulse Rate 74 05/04/24 10:00 Respiratory Rate 16 05/04/24 10:00 Blood Pressure 141/80 H 05/04/24 10:00 Blood Pressure Mean 100 05/04/24 10:00 Blood Pressure Position Sitting 05/04/24 10:00 Pulse Oximetry 94 05/04/24 10:00 Oxygen Delivery Method Room Air 05/04/24 10:00 Vital Signs Temperature 97.8 F 05/04/24 10:00 Pulse Rate 74 05/04/24 10:00 Respiratory Rate 16 05/04/24 10:00 Blood Pressure 141/80 H 05/04/24 10:00 Pulse Oximetry 94 05/04/24 10:00 Oxygen Delivery Method Room Air 05/04/24 10:00 Temperature 97.8 F 05/04/24 10:00 Pulse Rate 74 05/04/24 12:17 Respiratory Rate 16 05/04/24 12:17 Blood Pressure 118/58 L 05/04/24 12:17 Pulse Oximetry 93 05/04/24 12:17 Oxygen Delivery Method Room Air 05/04/24 12:17 Medications Administered Medications: Discontinued Medications Generic Name Dose Route Start Last Admin Trade Name Freq PRN Reason Stop Dose Admin Sodium Chloride 1,000 mls @ 1,000 mls/hr 05/04/24 11:15 05/04/24 12:16 0.9 % Sodium Chloride 1000 Ml IV 05/04/24 12:14 Infused .Q1H EDIE Infusion Sodium Chloride 1,000 mls @ 1,000 mls/hr 05/04/24 13:15 05/04/24 14:09 0.9 % Sodium Chloride 1000 Ml IV 05/04/24 14:14 Infused .Q1H EDIE Infusion Ondansetron HCl 4 mg 05/04/24 11:01 05/04/24 11:31 Ondansetron 2 Mg/Ml Inj IVP 05/04/24 11:02 4 mg ONCE ONE Administration Medical Decision Making Lab Data Labs: Lab Results 05/04/24 05/04/24 Range/Units 11:25 14:05 WBC 11.10 H (4.50-11.00) K/uL RBC 5.73 H (4.00-5.20) m/uL Hgb 14.9 (12.0-16.0) gm/dL Hct 45.9 (33.0-51.0) % MCV 80 (80-100) fL MCH 26 (26-34) pg MCHC 33 (32-36) gm/dL RDW Coeff of Forrest 14.0 (11.5-15.5) % Plt Count 171 (140-440) K/uL Neut % (Auto) 68.4 (42.0-72.0) % Lymph % (Auto) 14.0 L (20-44) % [place] % (Auto) 5.1 (0.0-11.0) % Eos % (Auto) 11.7 H (0.0-7.0) % Baso % (Auto) 0.0 (0.0-3.0) % Neut # (Auto) 7.60 H (1.7-7.0) K/uL Lymph # (Auto) 1.60 (0.90-2.90) K/uL [place] # (Auto) 0.60 (0.00-0.90) K/UL Eos # (Auto) 1.30 H (0.00-0.50) K/uL Baso # (Auto) 0.00 (0.00-0.30) K/uL Abs Immat Gran (auto) 0.10 (0.00-0.30) K/uL Imm/Tot Granulo (auto) 0.8 % Sodium 139 (135-149) mmol/L Potassium 4.1 (3.6-5.1) mmol/L Chloride 104 (96-114) mmol/L Carbon Dioxide 24 (20-32) mmol/L Anion Gap 11 (7-15) mEq/L BUN 9 (5-24) mg/dL Creatinine 0.7 (0.5-1.5) mg/dL Estimated Creat Clear 111.16 Estimated GFR 117 ml/min Glucose 129 H (60-115) mg/dL Lactate 1.6 (0.5-1.9) mmol/L Calcium 9.7 (8.4-10.6) mg/dL Total Bilirubin 0.8 (0.1-1.5) mg/dL Direct Bilirubin 0.3 (0.0-0.5) mg/dL AST 20 (12-35) U/L ALT 24 (4-35) U/L Alkaline Phosphatase 78 (40-150) U/L C-Reactive Protein 1.6 H (0.5-1.0) mg/dL Total Protein 7.5 (6.0-8.3) g/dL Albumin 4.7 (3.3-5.0) g/dL Lipase 58 (23-300) U/L HCG, Qual Negative (Negative) Urine Color Yellow (Yellow) Urine Appearance Cloudy A (Clear) Urine pH 7.0 (5.0-8.5) Ur Specific Candor 1.010 (1.000-1.030) Urine Protein Negative (Negative) Urine Glucose (UA) Negative (Negative) Urine Ketones Negative (Negative) Urine Blood 1+ A (Negative) Urine Nitrite Negative (Negative) Urine Bilirubin Negative (Negative) Urine Urobilinogen 0.2 (0.2-1.0) Ur Leukocyte Esterase 1+ A (Negative) Urine RBC 2-5 A (0-2) Urine WBC 2-5 (0-5) Ur Squamous Epith Cells Few (None-Few) Urine Bacteria Moderate A (None) Urine HCG, Qual Cancelled Discharge Plan Discharge Clinical Impression: Vomiting and diarrhea, Medication intolerance Patient Disposition: Home, Self-Care Condition: Improved Instructions: Acute Nausea and Vomiting (DC) Additional Instructions: Overall, your labs are reassuring. However, you do have a higher than normal number of eosinophils, a specific type of white blood cell. This can in rare cases be seen with Ozempic, and this is something you should discuss with your primary doctor so this can be followed. I do not think this is directly likely related to the symptoms of vomiting and diarrhea, which are common side effects of Ozempic. You can use Zofran if needed for further nausea. Clear liquids until you are feeling improved and feel you can tolerate solid food. Prescriptions: No Action trazodone 50 mg tablet 50 mg PO Patient Comments: TAKE ONE TABLET BY MOUTH AT BEDTIME sertraline 100 mg tablet 100 mg PO Patient Comments: TAKE TWO TABLETS BY MOUTH DAILY rosuvastatin 40 mg tablet 40 mg PO Patient Comments: Take 1 Tablet by mouth at bedtime ezetimibe 10 mg tablet 10 mg PO Patient Comments: Take 1 Tablet by mouth once daily buspirone 10 mg tablet 10 mg PO Patient Comments: TAKE TWO TABLETS BY MOUTH TWICE DAILY cefuroxime axetil 500 mg tablet 500 mg PO Patient Comments: TAKE 1 TABLET BY MOUTH TWICE DAILY FOR 10 DAYS albuterol sulfate [Ventolin HFA] 90 mcg/actuation HFA aerosol inhaler 2 puff inhalation Patient Comments: Inhale 1-2 Puffs by mouth every 6 hours if needed for Wheezing azelastine 0.05 % drops ophthalmic (eye) Patient Comments: INSTILL ONE DROP INTO EACH EYE TWICE DAILY Ozempic 1 mg/dose (4 mg/3 mL) pen injector 1 mg subcut Follow Up/Referrals: Casandra Lopez PA-C [Primary Care Provider] - Stand Alone [facility]
[2024-05-04] MEDS: ONDANSETRON 2 MG/ML inj 4 MG IVP (11:31)
[2024-05-04] MEDS: 0.9 % SODIUM CHLORIDE 1000 ml 1,000 ML IV ×2 (11:31→13:13)
[2024-05-04 11:38] LABS: Eosinophils Percent Auto 11.7 % (0.0-7.0); Hematocrit 45.9 % (33.0-51.0); Hemoglobin* 14.9 gm/dL (12.0-16.0); Immature Granulocytes Pct Auto 0.8 %; Lactate Sepsis w/Reflex* 1.6 mmol/L (0.5-1.9); Mean Corpuscular HGB Conc 33 gm/dL (32-36); Mean Corpuscular Hemoglobin 26 pg (26-34); Mean Corpuscular Volume 80 fL (80-100); Monocytes Percent Auto 5.1 % (0.0-11.0); Neutrophils Percent Auto 68.4 % (42.0-72.0); Platelet Count* 171 K/uL (140-440); Red Blood Count 5.73 m/uL (4.00-5.20)
[2024-05-04 11:39] LABS: Slide Review Reflex No
[2024-05-04 11:56] LABS: Albumin* 4.7 g/dL (3.3-5.0); Chloride* 104 mmol/L (96-114); Sodium* 139 mmol/L (135-149)
[2024-05-04 11:57] LABS: Potassium* 4.1 mmol/L (3.6-5.1)
[2024-05-04 11:58] LABS: HCG Qualitative Serum* Negative (Negative)
[2024-05-04 11:59] LABS: Creatinine* 0.7 mg/dL (0.5-1.5); Est. Creatinine Clearance* 111.16; Estimated Glomerular Filt Rate 117 ml/min
[2024-05-04 12:00] LABS: Alanine Aminotransferase* 24 U/L (4-35); Alkaline Phosphatase* 78 U/L (40-150); Anion Gap 11 mEq/L (7-15); Aspartate Amino Transferase* 20 U/L (12-35); Bilirubin Direct* 0.3 mg/dL (0.0-0.5); Bilirubin Total* 0.8 mg/dL (0.1-1.5); Blood Urea Nitrogen* 9 mg/dL (5-24); Calcium* 9.7 mg/dL (8.4-10.6); Carbon Dioxide* 24 mmol/L (20-32); Glucose* 129 mg/dL (60-115); Lipase* 58 U/L (23-300); Total Protein* 7.5 g/dL (6.0-8.3)
[2024-05-04 12:03] LABS: C Reactive Protein* 1.6 mg/dL (0.5-1.0)
[2024-05-04 12:17] VITALS: BP 118/58; PULSE 74; RESP 16; O2SAT 93
[2024-05-04 14:15] LABS: Appearance Urine Cloudy (Clear); Bilirubin Urine Negative (Negative); Blood Urine 1+ (Negative); Color Urine Yellow (Yellow); Glucose Urine Negative (Negative); Ketones Urine Negative (Negative); Leukocyte Esterase Urine 1+ (Negative); Nitrite Urine Negative (Negative); Protein Urine Negative (Negative); Urobilinogen Urine 0.2 (0.2-1.0)
[2024-05-04 14:23] LABS: Bacteria Urine Moderate; Squamous Epithelial Cell Urine Few (None-Few)
== END 2024-05-04 14:41 | disposition home or self-care (01) ==
PROVIDERS: Emergency Provider Emergency Medicine; PCP Physician Assistant
DX: R11.10 Vomiting, unspecified (principal); R19.7 Diarrhea, unspecified; T50.995A Adverse effect of other drugs, medicaments and biological substances, initial encounter
CPT/HCPCS: 36415; 80048; 80076; 81001; 81025; 83605; 83690; 84703; 85025; 86140; 87086; 96361; 96374; 99284; J2405; J7030

== ENCOUNTER 2025-03-23 22:10 | Emergency (ER) | payer BC, SELFPAY ==
--- OUTSIDE RECORDS SUMMARY | 2025-02-18 11:11 | XMS_ITS | Continuity of Care Document ---
Author Organization [facility] Address [address] [address] [place] [address] Phone Care Team Providers Care Estimating Manager Name Role Phone Jorgtio Wise MD, Tony Riojas [facility] Advance Directives Directive Yes / No Effective Date File Name No Information Encounters Encounter Description Practice Location Reason(s) For Visit Diagnoses Date Provider Providers Copied on Encounter [facility], [address] [address], [place], [place], [id number], [place] tel:[phone] [facility] No Information Jorgito Jimenez. [address] [facility], [facility] [address], [place], [place], [id number], [place]. tel:[phone] Family History Family Member Type Diagnosis Age At Onset No Information Payers Payer name Insurance type Covered libertarian ID Authoriza tion(s) No Information Social History Type Description Quantity Date Captured Comments Sex Female Smoking Status No Information Chief Complaint And Reason For Visit No Information Reason For Referral Reason For Referral No Information Plan Of Treatment Date Type Action Status Appointment Celsa Tyson BOOKED History Of Present Illness Encounter Date Complaint History Of Prese nt Illness No Information Functional Status Date Functional Assessmen t No Information Instructions Date Instruction Additional Infor mation No Information Assessments Type Assessment Date No Information Patient Care Teams Name Effective Dates (start - stop) Status Members No Information
--- OUTSIDE RECORDS SUMMARY | 2025-02-18 11:11 | XMS_ITS | Continuity of Care Document ---
Author Organization [facility] Address [address] [address] [place] [address] Phone Care Team Providers Care Parts Counter Sales Person Name Role Phone Jorgito Wise MD, Tony Riojas [facility] Advance Directives Directive Yes / No Effective Date File Name No Information Encounters Encounter Description Practice Location Reason(s) For Visit Diagnoses Date Provider Providers Copied on Encounter [facility], [address] [address], [place], [place], [id number], [place] tel:[phone] [facility] No Information Jorgito Jimenez. [address] [facility], [facility] [address], [place], [place], [id number], [place]. tel:[phone] Family History Family Member Type Diagnosis Age At Onset No Information Payers Payer name Insurance type Covered green party ID Authoriza tion(s) No Information Social History [...]
--- OUTSIDE RECORDS SUMMARY | 2025-03-23 22:12 | XMS_ITS | Data Portability ---
Author Organization [facility] - LITIGATION COORDINATOR, [id number] Address [address] [place] [address] Assessment No assessment recorded. Plan of Treatment Reminders Order Date Submit Date Provider Last Modified By Organization Details Last Modified Time Details Appointments None recorded. Lab CBC 2020 [facility], [address] [place], [address], 15:41:06 hemoglobin (Hb), blood 2020 021 [facility], [address] [place], [address], 22:52:30 Referral None recorded. Procedures None recorded. Surgeries None recorded. Imaging US, transvagina l 2020 021 [email or web address] [id number] le_kori, [address], [place], [address], 17:45:16 Medication Orders Provera 10 mg tablet 2020 021 uepfel [id number], [address], [place], [address], 12:31:43 Provera 10 mg tablet 2020 021 uepfel [id number], [address], [place], [address], 12:31:43 Patient TargetsNo targets recorded. Patient InstructionsNo instructions recorded. Reason for Referral None Reported. Results Created Date Observation Date Name Description Value Unit Range Abnormal Flag Note LastModifiedBy Organization Detail LastModifiedTime 01/22/20 21 01/21/2021 hemog lobin (Hb), blood hemoglobin 8.6 gm/dL 12.0-1 6.0 low Not Available [facility] [address] [place], [address], 01/21/2021 22:52:30 02/19/20 21 02/18/2021 CBC WBC 6.0 K/uL 4.3-10 .8 Not Available [facility] [address] [place], [address], 02/18/2021 15:41:06 02/19/20 21 02/18/2021 CBC RBC 4.21 M/uL 4.20-5 .40 Not Available [facility] [address] [place], [address], 02/18/2021 15:41:06 02/19/20 21 02/18/2021 CBC hemoglobin 10.1 gm/dL 12.0-1 6.0 low Not Available [facility] [address] [place], [address], 02/18/2021 15:41:06 02/19/20 21 02/18/2021 CBC hematocrit 33.6 % 36.0-4 8.0 low Not Available [facility] [address] [place], [address], 02/18/2021 15:41:06 02/19/20 21 02/18/2021 CBC MCV 80 fL 80-100 Not Available [facility] [address] [place], [address], 02/18/2021 15:41:06 02/19/20 21 02/18/2021 CBC MCH 24 pg 27-33 low Not Available [facility] [address] [place], [address], 02/18/2021 15:41:06 02/19/20 21 02/18/2021 CBC MCHC 30 gm/dL 33-36 low Not Available [facility] [address] [place], [address], 02/18/2021 15:41:06 02/19/20 21 02/18/2021 CBC RDW 17.2 % 11.5-1 4.5 high Not Available [facility] [address] [place], [address], 02/18/2021 15:41:06 02/19/20 21 02/18/2021 CBC platelet count 267 K/uL 150-40 0 Not Available [facility] [address] [place], [address], 02/18/2021 15:41:06 02/19/20 21 02/18/2021 CBC MPV 10.7 6.5-12 Not Available [facility] [address] [place], [address], 02/18/2021 15:41:06 01/29/20 21 US, trans vagin al No observ ation record ed. [email or web address] [address], [place], [address], 02/03/2021 09:49:36 Result Notes None recorded. Procedures Surgical History Date Name Laterality Status Provider Name and Address Organization Details Recorded Time 02/05/20 21 Mirena, 52 [place] [address] [facility],[address], [place], [address], [facility] COORDINATOR 02/18/2021 12:32:10 02/05/20 21 HYSTEROSCOPY, SURGICAL, WITH BIOPSY OF ENDOMETRIUM AND/OR POLYPECTOMY (SURG) completed Suzi Garcia (TERMED) [facility] LITIGATION COORDINATOR 02/09/2021 23:58:39 09/15/20 20 Date of Last Pap Smear completed Jessica Chuck [facility] LITIGATION COORDINATOR 01/21/2021 16:05:04 10/16/19 18 Tonsillectomy completed Jessica Will [facility] LITIGATION COORDINATOR 01/21/2021 16:12:17 10/16/19 16 open stone operation on kidney or renal pelvis completed Jessica Will [facility] LITIGATION COORDINATOR 01/21/2021 16:12:07 10/16/19 08 [facility] 01/21/2021 16:12:28 Imaging Results None recorded. Procedure Notes None recorded. Medical Equipment None Reported. Allergies Allergen ID Allergen Name Allergen Category Reaction Reaction Severity Criticality Documentation Date Start Date Code Code System Note Provider Name and Address Organization Details Recorded Time niacin medicatio n flushing Not available Not available 01/21/2021 7393 RxNorm Jessica Chuck verdugo [facility] LITIGATION COORDINATOR 15:30:44 Medications Name Sig Start Date Stop [...] Address Organization Details Last Updated DateTime 01/21/2021 900195.4 9 g 44.2 kg/m2 170.18 cm 140 mm[Hg] 86 mm[Hg] Jessica Cedillo LITIGATION COORDINATOR 15:29:49 Date Recorded Body height Systolic blood pressure Diastolic blood pressure Provider Name and Address Organization Details Last Updated DateTime 01/28/2021 170.18 cm 120 mm[Hg] 84 mm[Hg] Jessica DE [place] LITIGATION COORDINATOR 01/28/2021 09:36:41 Date Recorded Body height Body mass index (BMI) Body weight Systolic blood pressure Diastolic blood pressure Provider Name and Address Organization Details Last Updated DateTime 02/18/2021 170.18 cm 43.1 kg/m2 626241.9 g 122 mm[Hg] 74 mm[Hg] Laura Carreon( TERM) [facility] LITIGATION COORDINATOR 10:44:15 Social History Question Answer Notes LastModified by Organizat ion Details LastModified Time Tobacco Smoking Status Never Smoker [facility] COORD[facility]ATOR 01/21/2021 16:08:27 What Is Your Level Of Caffeine Consumption? Moderate 1c/day Information not available 01/21/2021 Which Illicit Or Recreational Drugs Have You Used? None Information not available 01/21/2021 History Of Domestic Violence No Information no t available 01/21/2021 Marital Status Single Informatio n not available 01/21/2021 Sex: Unknown Functional Status Question Answer Note LastModified by Organizat ion Details LastModified Time What is your level of alcohol consumption? 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 None Information not available 01/21/2021 Mental Status None recorded. Family History Relationship Description Onset Age of this Age Resolved Age Notes LastModified by Organization Details LastModified Time Paternal Grandmother Malignant tumor of breast Not available 2020 16:05:52 Father Depressive disorder Not available 2020 16:06:16 Father Diabetes mellitus Uncle Not available 2020 16:06:30 Father Hypertensive disorder Uncle Not available 2020 16:07:00 Father Hypercholest erolemia Not available 2020 16:08:01 Brother Depressive disorder Uncle Not available 2020 16:06:16 Brother Hypercholest erolemia Not available 2020 16:08:01 Maternal Grandfather Hypertensive disorder Not available 2020 16:07:00 Maternal Grandfather Hypercholest erolemia Not available 2020 16:08:01 Paternal Grandfather Hypertensive disorder Not available 2020 16:07:00 Paternal Grandfather Hypercholest erolemia Not available 2020 16:08:01 Maternal Grandmother Cerebrovascu lar accident Not available 05/2021 16:07:14 Mother Disorder of thyroid gland Not available 2020 16:07:26 Mother Hypercholest erolemia Not available 2020 16:08:01 Medical History Condition Response Psych- Depression Y Cardiology- High Cholesterol Y Endocrinology- Thyroid Problems Y Psych- Anxiety Disorder Y Neurology- Headaches/Migraines Y Pulmonary- Asthma Y Urology- Stones Y Gynecological History Statement/Question Response Current Control Method None Date of Last Pap Smear 09/15/2020 Age at Menarche: 11 Date of Last Cholesterol Screening 09/15 Date of LMP 11/20/2020 Obstetrics History GPAL:G 0 P 0 0 0 0 Immunizations Vaccine Type Date Status Note Provider Nam henok and Address Organization Details Recorded Time SARS-COV-2 (COVID-19) vaccine, UNSPECIFIED 11/16/2020 abdon Noblefer Chuck null, [facility] LITIGATION COORDINATOR 01/21/2021 15:25:31 SARS-COV-2 (COVID-19) vaccine, UNSPECIFIED 10/16/2020 completed Jessica Will nullCEFERINO LITIGATION COORDINATOR 01/21/2021 15:25:42 Past Encounters Encounter ID Performer Location Encounter Start Date Encounter Closed Date Diagnosis/Indication Diagnosis SNOMED-CT Code Diagnosis ICD10 Code Diagnosis Note [id number] DAMON JOLLY MD [id number] ,[address] [facility] [place] [address] 01/21/2021 15:21:42 01/21/2021 16:40:31 Abnormal uterine bleeding 7336998169 9100 N93.9 - Discussed PALM COEIN etiology of abnormal uterine bleeding. Review of anatomy discussed with patient and described that some reasons for bleeding could be structural like polyp, fibroid, adenomyosi s or hormonal such as anovulatio n. - Plan for ultrasound to evaluate uterus, cervix, and adnexa. Depending on the results of overall assessment , will discuss appropriat e treatment options including expectant management , medical management , procedures , and surgery. Reviewed progestero ne only options including IUD, POPs, cyclic provera, Nexplanon, depo provera. - Discussed endometria l biopsy to evaluate for hyperplasi a or malignancy , will defer until ultrasound . - Will Obesity 386996754 E66.9 History of Graves' disease 4608865897 77085 Z86.39 In remission, no meds. TSH within last 4 months was normal. [id number] DAMON JOLLY MD [id number] ,[address] [facility] [place] [address] 01/28/2021 08:34:23 02/01/2021 17:45:15 Abnormal uterine bleeding 1896799742 9100 N93.9 - Discussed PALM COEIN etiology of abnormal uterine bleeding. Review of anatomy discussed with patient and described that some reasons for bleeding could be structural like polyp, fibroid, adenomyosi s or hormonal such as anovulatio n. - Plan for ultrasound to evaluate uterus, cervix, and adnexa. Depending on the results of overall assessment , will discuss appropriat e treatment options including expectant management , medical management , procedures , and surgery. Reviewed progestero ne only options including IUD, POPs, cyclic provera, Nexplanon, depo provera. - Discussed endometria l biopsy to evaluate for hyperplasi a or malignancy , will defer until ultrasound . - Will [id number] DAMON JOLLY MD [id number] ,[address] [facility] [place] [address] 01/28/2021 09:30:28 01/28/2021 15:38:58 Abnormal uterine bleeding 0508609173 9100 N93.9 - Discussed PALM COEIN etiology of abnormal uterine bleeding. Review of anatomy discussed with patient. Suspected polyp and thickened lining discussed. - Recommend hysterosco py, polypectom y for diagnostic and treatment purposes. She is in agreement. The procedure was reviewed in detail including risks, benefits, and alternativ es. - Options for management or irregular bleeding (suspected anovulatio n). Discussed option for Mirena IUD placement at the time of the procedure and she desires to proceed with this. - Continue with provera until procedure. Call if bleeding worsens. - Pre-op with PCP Obesity 684057256 E66.9 [id number] DAMON JOLLY MD [id number] [address] ,[address] [facility] [place] [address] 02/18/2021 10:36:12 02/18/2021 12:49:00 Anemia 102093716 D64.9 - Repeat CBC today. Postoperative visit 1836 39123 Z09 - Doing well post-opera tively - Follow-up as needed or in one year Health Concerns Section Related Observation LastModified by Organization Detai ls LastModified Time None Recorded Concern Status LastModified by Organization Details LastModified Time None Recorded Advance Directives Directive None Recorded Payers Insurance Date Sequence Insurance Name Policy Number Policy Mayo Covered Member ID Mayo Member ID Guarantor Name 02/08/2021 1 PREFERREDONE [id number] Celsa Tyson [id number] Celsa Tyson 02/15/2021 1 PREFERREDONE (PPO) [id number] Celsa Tyson [id number] Celsa Tyson Notes Date Note Type Note Provider Name and Address Organization Details Recorded Time 01/21/2021 text/html Abnormal Bleedin g ([facility])Reported bypatient.Patient Relationship with Practice:new patient Presents for:a new evaluation Reason for visit:abnormal pattern bleeding Last Normal Menses:12/2019 (one year ago) Frequency of Normal Menses:irregular Flow of Normal Menses:Duration: >7 days; Quantity: heavy; no menses x1 year, now has had bleeding x56 days Pattern of Abnormal Bleeding:heavy periods; bleeding between periods;Flow: heavy Bleeding requires:a pad/tampon change every 2 hours Abnormal bleeding has been present for:days; 2 months; 56 days Context:first episode of abnormal bleeding Contraceptive Method:nothing; not sexually active x5 yrs Diagnostic Testing:PAP smear up to date: up-to-date Associated Signs & Symptoms:dizziness ; uncertain if symptoms due to recent start of weight-loss agent Previous and Current Treatments:none Modifying Factors:no modifying factorsNotes:Previ ously regular periods. Last normal period was one year ago 12/2019. Period started in October for 20 days, then stopped x5 days, then restarted and has been bleeding since.Has passed clots the size of a baseball. Has had pqagmdwle30 days. Changing tampons every 2 hours. Was having to use two tampons at a time. At night using pads. Had physical 09/2020. TSH normal.Not sexually [id number]. Prior to a year ago periods were [...] normal. [place] [id number] [address] [facility],[address], [place], [address], [facility] [place] LITIGATION COORDINATOR 01/21/2021 16:33:27 01/28/2021 text/html 30yo G0 here for follow-up after ultrasound [...] Hgb returned at 8.6. 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 Continuing on provera. Feeling less lightheaded today. US: 8.3 cm anteverted uterus with 14 mm EMS, possible 1.3 cm polyp with feeder vessel. Right ovary normal. Left ovary with 4.7 cm simple cyst. [place] [address] [address] [facility],[address], [place], [address], [facility] LITIGATION COORDINATOR 01/28/2021 14:51:57 02/18/2021 text/html Post-Op OCEAN FISHING GUIDE ()Reported byAngy [place] Date:02/04/21 Surgical Procedure:dilation and curettage; hysteroscopy; placement of Mirena IUD Pathology:surgical findings and pathology reviewed; Polyp was suspected, on hysteroscopy lining appeared diffusely thickened but no polyp seen. Pathology benign polyp, benign endometrium. Postoperative Symptoms:none; no fever; no chills; no fatigue; no shortness of breath; no chest pain; no nausea; no vomiting; no dysuria; no pelvic pain; no abnormal bleeding; minimal bleeding/discharge since surgery Postoperative Complications:none Notes:Very happy with decrease/cessation of bleeding [place] [address], [place], [address], [place] [facility] LITIGATION COORDINATOR 02/18/2021 12:39:20 OBGyn Episode No OBEpisode recorded.
--- OUTSIDE RECORDS SUMMARY | 2025-03-23 22:12 | XMS_ITS | Clinical Summary ---
Author Organization [facility] Address [address] [place] [address] Care Team Providers Care Hangersmith Name Role Phone Casandra Lopez PA-C Primary Care Provider [phone] Allergies Active Allergy Reactions Criticality Noted Date Comments Niacin Other (See Comments) 01/12/2018 Other reaction(s): Flushing Seasonal Allergies 02/04/2021 Shellfish Allergy 09/29/2016 Other reaction(s): Edema facial Medications TRAZODONE HCL PO Take 50 mg by mouth At Bedtime Active acetaminophen-c affeine (EXCEDRIN TENSION HEADACHE) 500-65 MG TABS Take [...] 40 mg by mouth At Bedtime Active medroxyPROGESTE Luis (PROVERA) 10 MG tablet Take 20 mg [...] School Help Needed Not on file 07/16 Comments No Sex and Gender Information Value Date Recorded Sex Assigned at Not on file Legal Sex Female 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 Gender Identity Not on file Sexual Orientation Not on file Last Filed Vital Signs Vital Sign Reading Time Taken Comments Blood Pressure 158/65 02/04/2021 1:21 PM CDT Pulse 79 02/04/2021 1:21 PM CDT Temperature 36.5 C (97.7 F) 02/04/2021 1:21 PM CDT Respiratory Rate 16 02/04/2021 1:21 PM CDT Oxygen Saturation 97% 02/04/2021 1:21 PM CDT Inhaled Oxygen Concentration - - Weight 122.9 kg (271 lb) 02/04/2021 8:39 AM CDT Height 172 cm (5' 7.72) 02/04/2021 8:39 AM CDT Body Mass Index 41.55 02/04/2021 8:39 AM CDT Plan of Treatment Upcoming Encounters Date Type Department Care Team (Late st Contact Info) Description 06/02/2025 12:30 PM CDT Hospital Encounter [facility] [address] [place] [address] Darrell Biswas MD [facility] [address] [place] [address] 06/02/2025 12:30 PM CDT - 06/02/2025 1:20 PM CDT Surgery [facility] [address] [place] [address] Darrell Biswas MD [facility] [address] [place] [address] Colonoscopy Scheduled Procedures Name Priority Associated Diagnoses Date/Ti me COLONOSCOPY Family history of adenomatous polyp of colon 06/02/2025 12:30 PM CDT Medical Devices Implanted Type Area Paralegal Assistant Device Identifier Shelf Expiration Date Model / Serial / Lot Iud Contraceptive Device Mirena [id number] Implanted:Qty: 1 on 02/04/2021 by Radha Dover MD at [facility] Contraceptive Device N/A: Vagina TIMOTHY 06/15/2023 [id number] / / [id number] [place] Care Teams Hangersmith Relationship Specialty Start Date End Date Casandra Lopez PA-C PCP - General 02/04/21
--- OUTSIDE RECORDS SUMMARY | 2025-03-23 22:12 | XMS_ITS | Clinical Summary ---
Author Organization [facility] Address [address] [place] [address] Care Team Providers Care Termination Clerk Name Role Phone ParamemiliaRhina espinal MD Unavailable Patricia Flowers MD Unavailable Unavailable Edinson Burrell Unavailable [phone] Tara Allison SECURITY SHIFT MANAGER Unavailable Diann Lewis RD Unavailable Tiffanie Bee Unavailable [phone] Unavailable Unavailab Carolina Alcaraz SECURITY SHIFT MANAGER Unavailable Unavailable Casandra Lopez Unavailable [phone] Casandra Lopez Primary Care Provider Marj Cross SCALE MODEL MAKER Unavailable [phone] Unavailable Thuan Alexis RN Unavailable Alyssa Lane RN Unavailable Allergies Active Allergy Reactions Criticality Noted Date Comments Niacin Flushing 01/12/2018 Levonorgestrel-Ethinyl Estrad *Unknown 02/02/2021 Shellfish Containing Products Edema 09/29/2016 facial Unlisted Allergen (Include Detail In Comments) Itching 04/13/2010 Seasonal allergies to pollen. Itchy eyes, runny nose and sneezing. Some fruits (bananas, pumpkin) - Itchy mouth Medications cetirizine-pseudoephedr ine, 5-120 mg, (ZYRTEC-D) 5-120 mg tablet Take 1 tablet by mouth 2 times daily. 30 tablet 2 010 Active dbeucdp-nipuzendegzwj-e affeine, 250-250-65 mg, (EXCEDRIN MIGRAINE) 250-250-65 mg tablet Take 2 tablets by mouth every 6 hours if needed for Headache. Max acetaminophen dose: 4000mg in 24 hrs. DO NOT TAKE FOR 2 WEEKS POST OP 0 016 Active levonorgestrel intrauterine device (Mirena) 20 mcg/24 hours (6 yrs) 52 mg IUD Mirena 20 mcg/24 hours (6 yrs) 52 mg intrauterine device Take by intrauterine route. 021 Active blood-glucose meterIndications:New onset type 2 diabetes mellitus (HC) Dispense meter covered by patient's insurance. E11.9 NIDDM type II - Test 1 time/day. 1 Kit 023 Active blood sugar diagnostic stripIndications:New onset type 2 diabetes mellitus (HC) Dispense item covered by pt ins. E11.9 NIDDM type II - Test 1 time/day. 100 Each 3 023 Active lancetsIndications:New onset type 2 diabetes mellitus (HC) Dispense item covered by pt ins. E11.9 NIDDM type II - Test 1 time/day. 100 Each 3 023 Active rosuvastatin (CRESTOR) 40 mg tabletIndications:Famil ial hypercholesterolemia Take 1 Tablet (40 mg) by mouth at bedtime. 90 Tablet 3 024 Active ezetimibe (ZETIA) 10 mg tabletIndications:Famil ial hypercholesterolemia Take 1 Tablet (10 mg) by mouth once daily. 90 Tablet 3 024 Active evolocumab (Repatha SureClick) 140 mg/mL subcutaneous pen injectorIndications:Hyp erlipidemia, unspecified hyperlipidemia type Inject 1 mL (140 mg) subcutaneous every 2 weeks. 6 mL 3 024 Active CPAPIndications:FREDY (obstructive sleep apnea) CPAP (E0601) machine for home use at pressure: 10-16 cmH20 RENEW SUPPLIES DME: Adapt Choice of mask (A7030 or A7034) w/full face cushion (A7031) x1/mo, nasal cushion (A7032) x2/mo, or nasal pillows (A7033) x 2/mo; Length of Need: 99 months; Frequency of use: Daily 024 Active busPIRone (BUSPAR) 10 mg tabletIndications:Depre ssion with anxiety Take 2 Tablets (20 mg) by mouth two times daily. 360 Tablet 3 025 Active sertraline (ZOLOFT) 100 mg tabletIndications:Depre ssion with anxiety Take 2 Tablets (200 mg) by mouth once daily. 180 Tablet 025 Active traZODone (DESYREL) 50 mg tabletIndications:Insom shelbi, unspecified type Take 1 Tablet (50 mg) by mouth at bedtime. 90 Tablet 3 Active tool programmer (Dexcom G7 Senior Living Sales Counselor) for continuous blood glucose monitor (CGM)Indications:Type 2 diabetes mellitus with other specified complication, without long-term current use of insulin (HC) This is for the glucose GARMENT SUPERVISOR , also order the sensors. 1 Each Active sensor (Dexcom G7 Sensor) for continuous blood glucose monitor (CGM)Indications:Type 2 diabetes mellitus with other specified complication, without long-term current use of insulin (HC) To be used to read blood sugars, change sensor every 10 days. This is for the glucose SENSOR, also order the tool programmer. 9 Each 3 025 Active semaglutide (Ozempic) 2 mg/dose (8 mg/3 mL) subcutaneous penIndications:Type 2 diabetes mellitus without complication, without long-term current use of insulin (HC) Inject 2 mg subcutaneous once weekly. 9 mL 1 025 Active albuterol HFA 90 mcg/actuation inhalerIndications:Exer cise-induced asthma (HC) Inhale 1-2 Puffs by mouth every 6 hours if needed for Wheezing 1st choice. 1 Each 3 025 Active azelastine 0.05% ophthalmic 0.05 % ophthalmic solutionIndications:All ergic conjunctivitis of both eyes Place 1 Drop into both eyes two times daily. 6 mL 2 05/02/2 025 Active Active Problems Patient Care Coordination No te Formatting of this note migh t be different from the original. Medical Weight Management program binder given to patient on 11/04/2020. [place] LPN 11/16/20 3:[address] consult order entered 11/04/20. [facility] UTD 07/23/18 291 (5'7; 45.63) Problem Noted Date Diagnosed Date Type 2 diabetes mellitus wit hout complication, without long-term current use of insulin 05/10/2024 Pap smear for cervical cancer screening 03/08/20 24 Overview (03/08/2024): 02/2024 NIL/HPV negative. Plan: Pap/HPV due 02/2029. FREDY (obstructive sleep apnea) 01/23/2023 Overview (01/23/2023): On CPAP Morbid obesity with BMI of 50.0-59.9, adult 06/16 Insomnia 10/15/2021 Allergic conjunctivitis of both eyes 10/15/2021 History of Graves' disease 10/07/2020 Overview (10/07/2020): Went into remission, labs normal Aug 2019 Depression with anxiety 10/07/2020 Allergic rhinitis 06/19/2013 Exercise-induced asthma 07/02/2012 Migraine headache 11/10/2009 Vitamin D deficiency 11/10/2009 Acne vulgaris 03/05/2009 Overview (06/30/2014): Followed by Derm Familial hypercholesterolemia Overview (03/14/2019): Celsa has had high Cholesterol since teenage years with highest LDL on our charts of 299 in 06/2011. She had achilles tendon xanthomas. + family history of severe (>95th percentile) hypercholesterolemia in her mother and brother. + family history of premature coronary artery disease as well. Her Gambian Lipid score is at least 12 (LDL 299, tendon xanthoma, first degree relative with severely high Cholesterol + maternal grandfather with premature coronary artery disease). Follows with Dr. Grayson Hernandez at [facility]. Resolved Problems Problem Noted Date Diagnosed Date Resolved Date New onset type 2 diabetes mellitus 01/27/2023 05/10/2024 Prediabetes 08/02/2022 12/06/2023 Weight gain 07/01/2022 12/06/2023 Graves disease 10/29/2018 10/07/2020 Morbid obesity with BMI of 45.0-49.9, adult 07/23/2018 12/06/2023 Major depressive disorder, r ecurrent episode, moderate 09/01/2014 10/07/2020 Generalized anxiety disorder 09/01/2014 10/07/2020 Abnormal TSH 06/30/2014 06/30/2014 Overview (06/30/2014): History of abnormal TSH, but normal since at least 2008. Anemia 06/19/2013 06/30/2014 Overview (06/30/2014): Normal since 2008 Mixed hyperlipidemia 07/11/2011 011 Depression with anxiety 04/27/201005/18 Varicella without mention of complication 04/13/2010 06/19/2013 Microcytosis 11/10/2009 06/30/2014 Thyroid function test abnormal 11/10/2009 06/19/2013 Thyroid function test abnormal 11/10/2009 06/30/2014 Bronchial asthma 05/11/2009 07/02/2012 Family history of high cholesterol 01/05/2022 Tonsillitis 10/07/2020 Encounters Date Type Department Care Team Description 03/14/2025 1:00 PM CDT Office Visit [facility] [address] [place] [address] Katherin Pathak LICSW Follow Up 03/13/2025 Travel 03/07/2025 9:00 AM CDT Patient Outreach [facility] [address] [facility] [address] [place] [address] RN Diabetes (Yearly assessment) 03/06/2025 Travel 02/28/2025 10:30 AM CDT Office Visit [facility] [address] [place] [address] Katherin Pathak LICSW Follow Up 02/27/2025 Travel 02/21/2025 9:30 AM CDT Office Visit [facility] [address] [place] [address] Katherin Pathak [facility] Anxiety; Depression 02/20/2025 Travel 02/14/2025 7:30 AM CDT Office Visit [facility] [address] [place] [address] Casandra Lopez PA Physical (Fasting ); Diabetes (Check ) 02/13/2025 Travel from Last 3 Months Immunizations Immunization Administration Dates Next Due COVID-19 VACCINE SPIKEVAX (M ODERNA 50MCG/0.5ML) 12YO+ PFS 08/11/2023 Covid-19 Vaccine (Unspecified) 11/16/2020,2020 DTP 01/07/1992, [...] Name Comments Anxiety disorder Brother 1 Christofer Obsessive C ompulsive Personality Disorder Colon polyps Brother 1 Christofer Depression Brother 1 Christofer Hyperlipidemia Brother 1 Christofer on meds Anxiety disorder Brother 2 Massimo Depression Brother 2 Massimo Anxiety disorder Father Kodi Depression Father Kodi Diabetes Father Kodi Hyperlipidemia Father Kodi Hypertension Father Kodi Obesity Father Kodi Psychiatric illness Father Kodi anxiety Coronary artery disease Maternal Grandfather shira Heart Disease Maternal Grandfather shira heart attack in his 30s or 40s Hyperlipidemia Maternal Grandfather shira Hypertension Maternal Grandfather shira Stroke Maternal Grandmother Camille Alcoholism Maternal Uncle 1 Yinka COPD Maternal Uncle 1 Yinka Hyperlipidemia Maternal Uncle 1 Yinka Hyperlipidemia Maternal Uncle 2 Allergies Mother Becky Anxiety disorder Mother Becky Depression Mother Becky Diabetes Mother Becky Hyperlipidemia Mother Becky Hypertension Mother Becky Obesity Mother Becky Osteoarthritis Mother Becky Thyroid Disease Mother Becky Hypothyroidi sm Coronary artery disease Paternal Grandfather [place] Heart attack Paternal Grandfather Giuseppe in his 50-60s Hyperlipidemia Paternal Grandfather Giuseppe Hypertension Paternal Grandfather [place] Cancer-breast Paternal Grandmother [place] Clotting disorder Paternal Grandmother [place] Obesity Paternal Grandmother [place] Stroke Paternal Grandmother [place] Diabetes Paternal Uncle Nick Type II Stroke Paternal Uncle Nick Anesthesia Problem No Family History Blood Disease No Family History Relation Name Status Comments Brother 1 Christofer Alive Brother 2 Massimo Alive Father Kodi Alive Maternal Grandfather shira (Age 35) Maternal Grandmother Camille (Age 72) Maternal Uncle 1 Yinka Maternal Uncle 2 Mother Becky Alive Paternal Grandfather Giuseppe (Age 67) Paternal Grandmother [place] (Age 72) Paternal Uncle Nick Social History Tobacco Use Types Packs/Day Years Used Date Smoking Tobacco: Never Passive Smoke Exposure: Yes Smokeless Tobacco: Never Tobacco Cessation:Counseling Given: Not Answered Comments:uncle smokes outside Alcohol Use Standard Drinks/Week Comments Yes 0 (1 standard drink = 0.6 oz pure alcohol) every few months, 1-2 drinks per 24h PHQ-2 Answer Date Recorded PHQ-2 TOTAL SCORE 3 02/14/2025 Social Connections Answer Date Recorded Do you often feel lonely or isolated from those around you? 0 12/09/2024 Financial Resource Strain Answer Date R ecorded Difficulty of Paying Living Expenses 3 12/09/2024 Difficulty of Paying Living Expenses Not on file 12/09/2024 Food Insecurity Answer Date Recorded Do you worry your food will run out before you are able to buy more? 1 12/09/2024 Transportation Needs Answer Date Record ed Does lack of transportation keep you from medica l appointments? 1 12/09/2024 Does lack of transportation keep you from work, meetings or getting things that you need? 1 12/09/2024 Housing Stability Answer Date Recorded What is your housing situation today? 1 12/09/2024 Utilities Answer Date Recorded Do you have trouble paying f or utilities (for example, heat, electricity, water, phone)? 1 12/09/2024 Comments No Sex and Gender Information Value Date Recorded Sex Assigned at Female 05/18/2021 11:42 PM CDT Legal Sex Female 5:19 AM JUICE MIXER Gender Identity Female 05/18/2021 11:42 PM CDT Sexual Orientation Straight 05/18/2021 11 :42 PM CDT Occupation 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 Not on file Not on file Not on file Obstetrics History Para Term AB IAB SAB Ectopic Multiple Livin g Live Births 0 0 0 0 0 0 0 0 0 0 Last Filed Vital Signs Vital Sign Reading Time Taken Comments Blood Pressure 126/82 02/14/2025 7:58 AM CDT Pulse 80 02/14/2025 7:58 AM CDT Temperature 36.6 C (97.8 F) 05/10/2024 2:02 PM CDT Respiratory Rate 16 03/20/2023 11:28 AM CDT Oxygen Saturation 96% 07/02/2024 4:12 PM CDT Inhaled Oxygen Concentration - - Weight 151.5 kg (334 lb) 02/14/2025 7:58 AM CDT Height 171 cm (5' 7.32) 02/14/2025 7:58 AM CDT Body Mass Index 51.81 02/14/2025 7:58 AM CDT Plan of Treatment Upcoming Encounters Date Type Department Care Team (Late st Contact Info) Description 05/30/2025 12:00 PM CDT Patient Outreach [facility] [address] [facility] [address] [place] [address], RN [address] [place] [address] Health Maintenance Due Date Last Done Comments COVID-19 vaccine series ( season) 2024 08/11/2023, 11/16/2020, 10/16/2020 Influenza Vaccine (Season Ended) 2025 08/11/2023, 09/07/2022, 07/14/2021, Additional history exists BMI (ht and wt on same day) for age 18+ 02/14/2026 02/14/2025, 07/02/2024, 05/10/2024, Additional history exists Depression screening for age 12+ 02/14/2026 02/14/2025, 12/10/2024, 11/29/2024, Additional history exists Pap test for age 21-65 02/22/2029 , 02/23/2024, 10/07/2020, Additional history exists Tetanus booster 08/29/2029 08/29/2019, 04/2011, 02/03/2003 Hepatitis B series for 19+ Completed 03/28, 07/01/1996, 05/30/1996 Tdap Completed 08/29/2019, 06/22/2011 HIV for age 15-65 Completed 01/23/2023 Hepatitis C screening for ag e 18-79 Completed 01/23/2023 Pneumococcal series for age 6-49 Completed 01/24/20 23 Procedures Procedure Name Priority Date/Time Associated Diagnosis Comments BASIC METABOLIC PANEL Routine 02/14/2025 7:33 AM CDT Type 2 diabetes mellitus without complication, without long-term current use of insulin (HC) HEMOGLOBIN A1C MONITORING (POCT) Routine 02/14/2025 7:32 AM CDT Type 2 diabetes mellitus without complication, without long-term current use of insulin (HC) URINE ALBUMIN TO CREATININE RATIO, RANDOM Routine 02/14/2025 7:31 AM CDT Type 2 diabetes mellitus without complication, without long-term current use of insulin (HC) HPV HIGH RISK Routine 02/23/2024 9:20 AM CDT Pap smear for cervical cancer screening LC HIV-1/O/2, 4TH GENERATION Routine 01/23/2023 9:07 AM CDT Screening for HIV (human immunodeficiency virus) LC HCV ANTIBODY RFX TO QUANT PCR Routine 01/23/2023 9:07 AM CDT Encounter for hepatitis C screening test for low risk patient from Last 3 Months or Most Recently Relevant to Health Maintenance Results * (ABNORMAL) BASIC METABOLIC PANEL (02/14/2025 7:33 AM CDT) GLUCOSE 100(H) 65 - 99 mg/dL [facility] Comment: Fasting reference interval For someone without known diabetes, a glucose value between 100 and 125 mg/dL is consistent with prediabetes and should be confirmed with a follow-up test. UREA NITROGEN (BUN) 11 7 - 25 mg/dL [facility] CREATININE 0.69 0.50 - 0.97 mg/dL [facility] EGFR 117 > OR = 60 mL/min/1. 73m2 [facility] BUN/CREATININE RATIO SEE NOTE: 6 - 22 (calc) [facility] Comment: Not Reported: BUN and Creatinine are within reference range. SODIUM 139 135 - 146 mmol/L [facility] POTASSIUM 4.1 3.5 - 5.3 mmol/L [facility] CHLORIDE 104 98 - 110 mmol/L [facility] CARBON DIOXIDE 27 20 - 32 mmol/L [facility] ELECTROLYTE BALANCE 8 7 - 17 mmol/L (calc) [facility] CALCIUM 9.6 8.6 - 10.2 mg/dL [facility] Blood BLOOD SPECIMEN / Unknown 02/14/2025 7:33 AM CDT 02/14/2025 7:38 AM CDT Narrative [facility] - 02/15/2025 4:25 AM CDT FASTING:YES FASTING: YES us Casandra BYRD CHEMISTRY Final Result Performing Organization Address [facility]/ZIP Co de Phone Number [facility] [address] [place] [address], [facility] [address] [place] [address] * (ABNORMAL) POCT Hemoglobin A1C Monitoring (02/14/2025 7:32 AM CDT) Pathologist [facility] POC HEMOGLOBIN A1C 6.1(H) <6.0 % OF TOTAL HGB [facility] Comment: Any point of care results exhibiting inconsistency with the patient's clinical status should be repeated using a different testing method. Blood BLOOD SPECIMEN / Unknown 02/14/2025 7:32 AM CDT 02/14/2025 7:32 AM CDT us Casandra BYRD CHEMISTRY Final Result Performing Organization Address City[facility]/ZIP Co de Phone Number [facility] [id number] [place] [id number] [address] * URINE ALBUMIN TO CREATININE RATIO, RANDOM (02/14/2025 7:31 AM CDT) ALB RAND URINE 103.0 mg/L 02/14/2025 3:37 PM CDT [facility] CREATININE,URIN E 3.55 g/L 02/14/2025 3:37 PM CDT [facility] ALBUMIN TO CREATININE RATIO,RAND UR 29.0 <30.0 mg/g creat 02/14/2025 3:37 PM CDT [facility] Urine URINE SPECIMEN / Unknown [facility] / Unknown 02/14/2025 7:31 AM CDT 02/14/2025 7:31 AM CDT [facility] - 02/14/2025 3:37 PM CDT If Albumin to Creatinine Ratio is elevated, consider the following: Elevations seen with incipient nephropathy associated with diabetes mellitus or hypertension. Stress, exercise,hematuria, and urinary tract infection may also produce elevated results. If clinically indicated, confirm with 24 Hour Albumin to Creatinine Ratio. us Casandra BYRD URINE Final Result [facility] [address] [place] [address], [place] * HPV HIGH RISK (02/23/2024 9:20 AM CDT) TYPE 16 Negative Negative 02/27/2024 4:53 PM CDT [facility] TYPE 18 Negative Negative 02/27/2024 4:53 PM CDT [facility] OTHER HIGH RISK TYPES Negative Negative 02/27/2024 4:53 PM CDT [facility] Other (Cervical) Non-Blood / Unknown 02/23/2024 9:20 AM CDT 02/26/2024 9:29 AM CDT [facility] - 02/27/2024 4:53 PM CDT HPV types 16, 18, 31, 33, 35, 39, 45, 51, 52, 56, 58, 59, 66 and 68 DNA were undetectable or below the pre-set threshold. Methodology: Tez Armando 4800 HPV Test us Casandra BYRD MICROBIOLOGY Final Result Performing Organization Address [facility]/ZIP Co de Phone Number [facility] [address] [address], [place] * LC HCV ANTIBODY RFX TO QUANT PCR (01/23/2023 9:07 AM CDT) HCV Ab Non Reactive Non Reactive 01/25/2023 10:07 PM [facility]T [facility] Blood BLOOD SPECIMEN / Unknown Venipuncture / Unknown 01/23/2023 9:07 AM CDT 01/23/2023 9:08 AM CDT FOR ESOTERIC TESTING (CET) - 01/25/2023 10:07 PM CDT Performed at: [address] [place] [id number] Gas Fitter Helper: Prabhu Patel MD, Phone: [phone] us Khadra Garcia MD LABORATORY Final Result Performing Organization Address [facility]/ZIP Co de Phone Number [facility] ([facility]) [address] [place] [address] * LC HIV-1/O/2, 4TH GENERATION (01/23/2023 9:07 AM CDT) [facility] HIV Scr 4th Gen Non Reactive Non Reactive 01/25/2023 10:07 PM CDT [facility] ([facility]) Comment: HIV Negative HIV-1/HIV-2 antibodies and HIV-1 p24 antigen were NOT detected. There is no laboratory evidence of HIV infection. Blood BLOOD SPECIMEN / Unknown Venipuncture / Unknown 01/23/2023 9:07 AM CDT 01/23/2023 9:08 AM CDT [facility] ESOTERIC TESTING (CET) - 01/25/2023 10:07 PM CDT Performed at: [address] [place] [address] [id number] Gas Fitter Helper: Prabhu Patel MD, Phone: [phone] us Khadra Garcia MD LABORATORY Final Result Performing Organization Address City/[facility]/ZIP Co de Phone Number [facility] ([facility]) [address] [place] [address] from Last 3 Months or Most Recently Relevant to Health Maintenance Insurance [facility] Advance Directives * Full Code (Latest Code Status on File) Date Activated Date Inactivated Comments 09/30/2016 6:38 AM 10/04/2016 3:58 PM * Full Code Date Activated Date Inactivated Comments 02/25/2015 6:07 AM 02/25/2015 4:21 PM Care Teams Termination Clerk Relationship Specialty [place] [address] [place] [address] PCP - General Physician Pet Feeder 10/26/20 Rhina Hernandez MD [address] [place] [address] Consulting Physician Cardiovascular Disease 12/23/14 Patricia Flowers MD Neurology 07/16/18 Edinson Burrell [address] [place] [address] Dermatology 07/16/18 T[place] [id number] [place] [address] Consulting Physician Nurse Practitioner 07/23/18 Diann Enriquez, MELANIE [address] [place] [address] Registered Dietitian Media Coordinator 10/29/18 Tiffanie Bee PA [address] [place] [address] Physician's Pet Feeder Cardiovascular Disease 04/22/[address] [place] [address] Registered Dietitian Media Coordinator 10/28/20 Carolina Acevedo NP [address] [place] [address] Nurse Practitioner Nurse Practitioner - Family 10/28/20 Casandra Lopez PA [address] [place] [address] Physician's Pet Feeder Physician Pet Feeder 10/26/20 America Marjroque Houser, SCALE MODEL MAKER [address] [place], [place] [id number] Clinical Nurse Specialist 07/01/22 Rachel Enriquez, MELANIE [address] [place], [place] [phone] Media Coordinator 07/01/22 Thuan Alexis, MARTA [address] [facility] [place], [place] [address] Registered Nurse 07/01/[address] [place] [address] [place] [address] Adult Care Manager Registered Nurse 03/07/25 10/20/25
--- OUTSIDE RECORDS SUMMARY | 2025-03-23 22:13 | XMS_ITS | Data Portability ---
Author Organization [facility], [id number] Address [address] [place] [address] Assessment No assessment recorded. Plan of Treatment Reminders Order Date Submit Date Provider Last Modified By Organization Details Last Modified Time Details Appointments None recorded. Lab CBC 2020 [facility], [address] [place], [id number], 15:41:06 hemoglobin (Hb), blood 2020 021 [facility], [address] [place], [id number], 22:52:30 Referral None recorded. Procedures None recorded. Surgeries None recorded. Imaging US, transvagina l 2020 021 [email or web address] [id number] le_kori, [address], [place], [address], 17:45:16 Medication Orders Provera 10 mg tablet 2020 021 uepfel [id number], [address], [place], [address], 12:31:43 Provera 10 mg tablet 2020 021 uepfel [id number], [address], [place], [address], 12:31:43 Patient TargetsNo targets recorded. Patient InstructionsNo instructions recorded. Reason for Referral None Reported. Results Created Date Observation Date Name Description Value Unit Range Abnormal Flag Note LastModifiedBy Organization Detail LastModifiedTime 01/22/20 21 01/21/2021 hemog lobin (Hb), blood hemoglobin 8.6 gm/dL 12.0-1 6.0 low Not Available [facility] [address] [place], [address], 01/21/2021 22:52:30 02/19/20 21 02/18/2021 CBC WBC 6.0 K/uL 4.3-10 .8 Not Available [facility] [address] [place], [address], 02/18/2021 15:41:06 02/19/20 21 02/18/2021 CBC RBC 4.21 M/uL 4.20-5 .40 Not Available [facility] [address] [place], [address], 02/18/2021 15:41:06 02/19/20 21 02/18/2021 CBC hemoglobin 10.1 gm/dL 12.0-1 6.0 low Not Available [facility] [address] [place], [address], 02/18/2021 15:41:06 02/19/20 21 02/18/2021 CBC hematocrit 33.6 % 36.0-4 8.0 low Not Available [facility] [address] [place], [address], 02/18/2021 15:41:06 02/19/20 21 02/18/2021 CBC MCV 80 fL 80-100 Not Available [facility] [address] [place], [address], 02/18/2021 15:41:06 02/19/20 21 02/18/2021 CBC MCH 24 pg 27-33 low Not Available [facility] [address] [place], [address], 02/18/2021 15:41:06 02/19/20 21 02/18/2021 CBC MCHC 30 gm/dL 33-36 low Not Available [facility] [address] [place], [address], 02/18/2021 15:41:06 02/19/20 21 02/18/2021 CBC RDW 17.2 % 11.5-1 4.5 high Not Available [facility] [address] [place], [address], 02/18/2021 15:41:06 02/19/20 21 02/18/2021 CBC platelet count 267 K/uL 150-40 0 Not Available [facility] [address] [place], [address], 02/18/2021 15:41:06 02/19/20 21 02/18/2021 CBC MPV 10.7 6.5-12 Not Available [facility] [address] [place], [address], 02/18/2021 15:41:06 01/29/20 21 US, trans vagin al No observ ation record ed. [email or web address] Birgit [address], [place], [address], 02/03/2021 09:49:36 Result Notes None recorded. Procedures Surgical History Date Name Laterality Status Provider Name and Address Organization Details Recorded Time 02/05/20 21 Mirena, 52 [place] [address] [facility],[address], [place], [address], [facility] 02/18/2021 12:32:10 02/05/20 21 HYSTEROSCOPY, SURGICAL, WITH BIOPSY OF ENDOMETRIUM AND/OR POLYPECTOMY (SURG) completed Suzi Garcia (TERMED) [facility] 02/09/2021 23:58:39 09/15/20 20 Date of Last Pap Smear completed Jessica Chuck [facility] 01/21/2021 16:05:04 10/16/19 18 Tonsillectomy completed Jessica Will [facility] 01/21/2021 16:12:17 10/16/19 16 open stone operation on kidney or renal pelvis completed Jessica Will [facility] 01/21/2021 16:12:07 10/16/19 08 [facility] 01/21/2021 16:12:28 Imaging Results None recorded. Procedure Notes None recorded. Medical Equipment None Reported. Allergies Allergen ID Allergen Name Allergen Category Reaction Reaction Severity Criticality Documentation Date Start Date Code Code System Note Provider Name and Address Organization Details Recorded Time niacin medicatio n flushing Not available Not available 01/21/2021 7393 RxNorm Jessica Chuck verdugo [facility] 15:30:44 Medications Name Sig Start Date Stop [...] Address Organization Details Last Updated DateTime 01/21/2021 838126.4 9 g 44.2 kg/m2 170.18 cm 140 mm[Hg] 86 mm[Hg] Jessica Cedillo [facility] 15:29:49 Date Recorded Body height Systolic blood pressure Diastolic blood pressure Provider Name and Address Organization Details Last Updated DateTime 01/28/2021 170.18 cm 120 mm[Hg] 84 mm[Hg] Jessica [place] [facility] 01/28/2021 09:36:41 Date Recorded Body height Body mass index (BMI) Body weight Systolic blood pressure Diastolic blood pressure Provider Name and Address Organization Details Last Updated DateTime 02/18/2021 170.18 cm 43.1 kg/m2 864971.9 g 122 mm[Hg] 74 mm[Hg] Laura Carreon( TERM) [facility] 10:44:15 Social History Question Answer Notes LastModified by Organizat ion Details LastModified Time Tobacco Smoking Status Never Smoker [facility] 01/21/2021 16:08:27 What Is Your Level Of [...] 11/16/2020 abdon Noblefer Chuck null, [facility] 01/21/2021 15:25:31 SARS-COV-2 (COVID-19) vaccine, UNSPECIFIED 10/16/2020 completed Jessica Will [facility] 01/21/2021 15:25:42 Past Encounters Encounter ID Performer Location Encounter Start Date Encounter Closed Date Diagnosis/Indication Diagnosis SNOMED-CT Code Diagnosis ICD10 Code Diagnosis Note [id number] DAMON JOLLY MD [id number] ,[address] [facility] [place] [id number] 01/21/2021 15:21:42 01/21/2021 16:40:31 Abnormal uterine bleeding 1093942994 9100 N93.9 - Discussed PALM COEIN etiology [...] defer until ultrasound . - Will Obesity 740003990 E66.9 History of Graves' disease 7464492207 57184 Z86.39 In remission, no meds. TSH within last 4 months was normal. [id number] DAMON JOLLY MD [id number] ,[address] [facility] [place] [id number] 01/28/2021 08:34:23 02/01/2021 17:45:15 Abnormal uterine bleeding 6368430411 9100 N93.9 - Discussed PALM COEIN etiology [...] will defer until ultrasound . - Will [id number] DAMON JOLLY MD [id number] [address] ,[address] [facility] [id number] 01/28/2021 09:30:28 01/28/2021 15:38:58 Abnormal uterine bleeding [id number] 9100 N93.9 - Discussed PALM COEIN etiology [...] bleeding worsens. - Pre-op with PCP Obesity 395364725 E66.9 [id number] DAMON JOLLY MD [id number] ,[address] [facility] [id number] 02/18/2021 10:36:12 02/18/2021 12:49:00 Anemia 484177247 D64.9 - Repeat CBC today. Postoperative visit 1836 85852 Z09 - Doing well post-opera tively - [...] Member ID Guarantor Name 02/08/2021 1 PREFERREDONE [id number] Celsa Tyson [id number] Celsa Tyson 02/15/2021 1 PREFERREDONE (PPO) [id number] Celsa Tyson [id number] Celsa Tyson Notes Date Note Type Note Provider Name and Address Organization Details Recorded Time 01/21/2021 text/html Abnormal Bleedin g ([facility])Reported bypatient.Patient Relationship with Practice:new patient Presents [...] the size of a baseball. Has had [id number] days. Changing tampons every 2 hours. Was having to use two tampons at a time. At night using pads. Had physical 09/2020. TSH normal.Not sexually [id number]. Prior to a year ago periods were [...] normal. [place] [address] [address] [facility],[address], [place], [address], [facility] [place] [facility] 01/21/2021 16:33:27 01/28/2021 text/html 30yo G0 here [...] Hgb returned at 8.6. 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 Feeling less lightheaded today. US: 8.3 cm anteverted uterus with 14 mm EMS, possible 1.3 cm polyp with feeder vessel. Right ovary normal. Left ovary with 4.7 cm simple cyst. [place] [id number] [address] [facility],[address], [place], [address], [facility] 01/28/2021 14:51:57 02/18/2021 text/html Post-Op [employer]IPMENT [employer]ER ()Reported byAngy [place] Date:02/04/21 Surgical Procedure:dilation and [...] decrease/cessation of bleeding [place] [address], [place], [address], [place] [facility] 02/18/2021 12:39:20 OBGyn Episode No OBEpisode recorded.
[2025-03-23 22:23] VITALS: BP 137/78; PULSE 88; RESP 20; TEMP 36.6; O2SAT 96; BMI 52.9
--- NOTE | 2025-03-23 22:25 | CRLHL7_ITS ---
For Patients: As a result of the Century Cures Act, medical imaging exams and procedure reports are released immediately into your electronic medical record. You may view this report before your referring provider. If you have questions, please contact your health care provider. INDICATION: Shortness of breath. TECHNIQUE: Chest 2 views. COMPARISON: May 29, 2021. FINDINGS: Cardiovascular and mediastinum: Heart size is normal. Unremarkable mediastinum. Lungs and pleural spaces: Lungs are clear. No sign of infiltrate or mass. No sign of pleural effusion. No pneumothorax. Bones and soft tissues: No significant findings. IMPRESSION: Negative chest. Dictated by Gabriel Vega MD @ 03/23/2025 11:11:36 PM (Electronically Signed)
--- NOTE | 2025-03-23 22:33 | ED.GENADULT ---
HPI - General Adult General Chief complaint: Shortness of Breath/Dyspnea Stated complaint: Asthma, sortness of breath Time Seen by Provider: 03/23/25 22:32 History of Present Illness HPI narrative: Arrives with complaints of cough and SOB that started about 3pm today . Has a history of asthma and reports she was outside most of the day today. She is alert and oriented, tight cough and somewhat dyspneic during triage, ABCs intact at this time 34-year-old woman presenting to emergency department with concern of shortness of breath and cough beginning about 7 hours ago this afternoon. Underlying history of asthma and has spent a good deal of the time outside today. No fever. Related Data Home Medications ?Medication ?Instructions ?Recorded ?Confirmed albuterol sulfate 90 mcg/actuation 2 puff inhalation 08/04/22 08/04/22 aerosol inhaler (Ventolin HFA) azelastine 0.05 % eye drops drp ophthalmic (eye) 08/04/22 08/04/22 buspirone 10 mg tablet 10 mg PO 08/04/22 08/04/22 ezetimibe 10 mg tablet 10 mg PO 08/04/22 08/04/22 rosuvastatin 40 mg tablet 40 mg PO 08/04/22 08/04/22 sertraline 100 mg tablet 100 mg PO 08/04/22 08/04/22 trazodone 50 mg tablet 50 mg PO 08/04/22 08/04/22 semaglutide 1 mg/dose (4 mg/3 mL) 1 mg subcut 05/04/24 subcutaneous pen injector (Ozempic) evolocumab 140 mg/mL subcutaneous 1 subcut Q2W 03/23/25 pen injector (Repatha SureLouisick) Previous Rx's ?Medication ?Instructions ?Recorded albuterol sulfate 2.5 mg/3 mL 2.5 mg (3 mL) inhalation Q4-6H PRN 03/24/25 (0.083 %) solution for nebulization #75 mL albuterol sulfate 90 mcg/actuation 2 inh inhalation Q2-3H PRN 03/24/25 aerosol inhaler shortness of breath or wheezing #8.5 grams prednisone 20 mg tablet 40 mg (2 x 20 mg) PO DAILY 4 days 03/24/25 #8 tabs Allergies Allergy/AdvReac Type Severity Reaction Status Date / Time No Known Drug Allergies Allergy Verified 03/23/25 22:21 Review of Systems Status of ROS: Reports: 6 or more systems reviewed and unremarkable except as noted in History and below [facility] Social History Smoking Status: Never smoker Exam Narrative: Exam Narrative: Pleasant. NAD though mildly tachypneic and mildly labored in breathing. Nasopharyngeal congestion without swelling or erythema to the face. End-expiratory wheeze with mild congestion in her lungs. Skin is warm and dry. Looks well-perfused. Heart is in mildly elevated rate and regular rhythm. Const: Vital Signs, click to edit/add: Vital Signs - 24 hr 03/23/25 22:23 Temperature 97.8 F Pulse Rate [Pulse Oximeter] 88 Respiratory Rate 20 Blood Pressure [Ri ght Upper Arm] 137/78 Pulse Oximetry 96 Oxygen Delivery Me thod Room Air Documenting provider has reviewed patient's vital signs: yes Course Vital Signs Vital signs: Initial Vital Signs Temperature 97.8 F 03/23/25 22:23 Temperature Source Temporal Artery Scan 03/23/25 22:23 Pulse Rate 88 03/23/25 22:23 Respiratory Rate 20 03/23/25 22:23 Blood Pressure 137/78 03/23/25 22:23 Blood Pressure Mean 97 03/23/25 22:23 Pulse Oximetry 96 03/23/25 22:23 Oxygen Delivery Method Room Air 03/23/25 22:23 Vital Signs Temperature 97.8 F 03/23/25 22:23 Pulse Rate 88 03/23/25 22:23 Respiratory Rate 20 03/23/25 22:23 Blood Pressure 137/78 03/23/25 22:23 Pulse Oximetry 96 03/23/25 22:23 Oxygen Delivery Method Room Air 03/23/25 22:23 Temperature 97.8 F 03/23/25 22:23 Pulse Rate 88 03/23/25 22:23 Respiratory Rate 20 03/23/25 22:23 Blood Pressure 137/78 03/23/25 22:23 Pulse Oximetry 96 03/23/25 22:23 Oxygen Delivery Method Room Air 03/23/25 22:23 Medications Administered Medications: Discontinued Medications Generic Name Dose Route Start Last Admin Trade Name Freq PRN Reason Stop Dose Admin Albuterol 2.5 mg 03/23/25 23:38 03/23/25 23:46 Albuterol Sulfate 2.5 Mg/3 Ml Vial.Neb NEB 03/23/25 23:39 2.5 mg ONCE ONE Administration Prednisone 80 mg 03/24/25 00:10 03/24/25 00:17 Prednisone 20 Mg Tablet PO 03/24/25 00:11 80 mg ONCE ONE Administration Medical Decision Making MDM Narrative Medical decision making narrative: Does appear to be exacerbation of asthma in someone with diagnosis of asthma. However atypical for her. Would check a chest x-ray and offer nebulizations. Also screen for COVID influenza and RSV. Ordered for albuterol nebulization and dosing of prednisone. Chest x-ray independently reviewed by me looks to be without infiltrate and has normal cardiac silhouette. No evidence of heart failure otherwise. Still somewhat congested but improved on reauscultation the less wheeze. Demonstrating vital stability in the emergency department over period of observation. Feels safe to discharge home. Swabs are negative. See patient discharge plan for further discussion Stay well-hydrated. I am sending in a prescription to your pharmacy for prednisone and an albuterol refill as well as albuterol for a nebulizer should you choose to get one. Considering what you said, you might want to take Zyrtec equivalent again for a while. Probably continue with your nasal steroid sprays as well. Prescribing nebulizer Medical Records Medical records reviewed: Yes I reviewed the patient's medical records Lab Data Lab results reviewed: Yes I reviewed the patient's lab results Labs: Lab Results 03/23/25 Range/Units 22:50 SARS-CoV-2 (PCR) Negative SARS-CoV-2 (Negative) Influenza Type A (PCR) Negative PCR FLU A (Negative) Influenza Type B (PCR) Negative PCR FLU B (Negative) RSV (PCR) Negative PCR RSV (Negative) Discharge Plan Discharge Clinical Impression: Asthma exacerbation Patient Disposition: Home w/ Parent or Adult Condition: Improved Additional Instructions: Stay well-hydrated. I am sending in a prescription to your pharmacy for prednisone and an albuterol refill as well as albuterol for a nebulizer should you choose to get one. Considering what you said, you might want to take Zyrtec equivalent again for a while. Probably continue with your nasal steroid sprays as well. Prescribing nebulizer Activity Level: No Restrictions Discharge Diet: Regular Prescriptions: New albuterol sulfate 2.5 mg /3 mL (0.083 %) solution for nebulization 2.5 mg inhalation Q4-6H PRNQty: 75 0RF albuterol sulfate 90 mcg/actuation HFA aerosol inhaler 2 inh inhalation Q2-3H PRN (Reason: shortness of breath or wheezing) Qty: 8.5 1RF prednisone 20 mg tablet 40 mg PO DAILY 4 Days Qty: 8 1RF No Action trazodone 50 mg tablet 50 mg PO Patient Comments: TAKE ONE TABLET BY MOUTH AT BEDTIME sertraline 100 mg tablet 100 mg PO Patient Comments: TAKE TWO TABLETS BY MOUTH DAILY rosuvastatin 40 mg tablet 40 mg PO Patient Comments: Take 1 Tablet by mouth at bedtime ezetimibe 10 mg tablet 10 mg PO Patient Comments: Take 1 Tablet by mouth once daily buspirone 10 mg tablet 10 mg PO Patient Comments: TAKE TWO TABLETS BY MOUTH TWICE DAILY albuterol sulfate [Ventolin HFA] 90 mcg/actuation HFA aerosol inhaler 2 puff inhalation Patient Comments: Inhale 1-2 Puffs by mouth every 6 hours if needed for Wheezing azelastine 0.05 % drops ophthalmic (eye) Patient Comments: INSTILL ONE DROP INTO EACH EYE TWICE DAILY Ozempic 1 mg/dose (4 mg/3 mL) pen injector 1 mg subcut Repatha SureClick 140 mg/mL pen injector 1 subcut Q2W Follow Up/Referrals: Casandra Lopez PA-C [Primary Care Provider, Family Practice] Stand Alone Forms: [facility] Info Instructions
[2025-03-23] MEDS: ALBUTEROL SULFATE 2.5 MG/3 ML VIAL.NEB NEB (23:46)
[2025-03-24] MEDS: predniSONE 20 MG TABLET 80 MG PO (00:17)
[2025-03-24 00:54] LABS: PCR FLU A Negative PCR FLU A (Negative); PCR FLU B Negative PCR FLU B (Negative); PCR RSV Negative PCR RSV (Negative); SARS PCR* Negative SARS-CoV-2 (Negative)
== END 2025-03-24 00:25 | disposition home or self-care (01) ==
PROVIDERS: Emergency Provider Family Medicine; PCP Physician Assistant
DX: J44.1 Chronic obstructive pulmonary disease with (acute) exacerbation (principal)
CPT/HCPCS: 71046; 87631; 94640; 99284; J7512

== ENCOUNTER 2025-05-04 12:12 | Emergency (ER) | payer BC, SELFPAY ==
--- OUTSIDE RECORDS SUMMARY | 2025-05-04 12:15 | XMS_ITS | Clinical Summary ---
Author Organization [facility] Address [address] [place] [address] Care Team Providers Care Clinical Lab Scientist Name Role Phone Casandra Lopez PA-C Primary Care Provider [phone] Allergies Active Allergy Reactions Criticality Noted Date [...] on file Legal Sex Female 3:24 AM AZURE ARCHITECT Gender Identity Not on file Sexual Orientation [...] Team (Late st Contact Info) Description 06/02/2025 11:20 AM CDT Hospital Encounter [facility] [address] [place] [address] Krishan Berg MD [address] [address] 06/02/2025 11:20 AM CDT - 06/02/2025 12:[address] [facility] [address] [place] [address] Krishan Breg MD [address] [address] Colonoscopy Scheduled Procedures Name Priority Associated Diagnoses Date/Ti me COLONOSCOPY Family history of adenomatous polyp of colon 06/02/2025 11:20 AM CDT Medical Devices Implanted Type Area Bail Bonding Agent Device Identifier Shelf Expiration Date Model / Serial / Lot Iud Contraceptive Device Mirena [id number] Implanted:Qty: 1 on 02/04/2021 by Radha Dover MD at [facility] Contraceptive Device N/A: Vagina TIMOTHY 06/15/2023 [id number] / / [id number] [place] Subscriber Plan / Payer (Ef fective 2024-Present) Name:Celsa Tyson Relation to Subscriber:Self Name:Celsa Tyson Payer ID:[id number] (NAIC) Type:Indemnity Address: [place] [phone] Care Teams Clinical Lab Scientist Relationship Specialty Start Date End Date Casandra Lopez PA-C PCP - General 02/04/21
--- OUTSIDE RECORDS SUMMARY | 2025-05-04 12:15 | XMS_ITS | Clinical Summary ---
Author Organization [facility] Address [address] [place] [address] Care Team Providers Care Php Programmer Name Role Phone ParamemiliaRhina espinal MD Unavailable Patricia Flowers MD Unavailable Unavailable Edinson Burrell Unavailable [phone] Tara Allison ASSEMBLY DETAILER Unavailable Diann Lewis RD Unavailable [phone] Tiffanie Bee Unavailable [phone] Unavailable Unavailab Carolina Alcaraz ASSEMBLY DETAILER Unavailable Unavailable Casandra Lopez Unavailable [phone] Casandra Lopez Primary Care Provider Marj Cross SENIOR HEALTH PHYSICS TECHNICIAN Unavailable [phone] Unavailable Thuan Alexis [...] times daily. 30 tablet 2 010 Active faroula-tbxwwwcwvgsff-w affeine, 250-250-65 mg, (EXCEDRIN MIGRAINE) 250-250-65 mg [...] mouth at bedtime. 90 Tablet 3 Active laser machine operator (Dexcom G7 Bank Secrecy Act Officer) for continuous blood glucose monitor (CGM)Indications:Type 2 diabetes mellitus with other specified complication, without long-term current use of insulin (HC) This is for the glucose DINKEY LOCOMOTIVE ENGINEER , also order the sensors. 1 Each Active sensor (Dexcom G7 Sensor) for continuous blood glucose monitor (CGM)Indications:Type 2 diabetes mellitus with other specified complication, without long-term current use of insulin (HC) To be used to read blood sugars, change sensor every 10 days. This is for the glucose SENSOR, also order the laser machine operator. 9 Each 3 025 Active semaglutide (Ozempic) [...] daily. 6 mL 2 05/02/2 025 Active Vios USE NEEDED Active predniSONE 20 mg tablet Take 40 mg by mouth. Active albuterol 0.083% (2.5 mg/3 mL) neb solution Inhale 2.5 mg by mouth. Active fluticasone propion-salmeteroL (Advair Diskus) 100-50 mcg/dose diskus inhalerIndications:Mild intermittent asthma with exacerbation (HC) Inhale 1 Puff by mouth two times daily. 60 Each 1 025 Active albuterol-ipratropium (2.5-0.5 mg) in 3 mL NEBULIZATION solutionIndications:Mil d intermittent asthma with exacerbation (HC) Inhale 3 mL via a nebulizer every 6 hours if needed for Shortness Of Breath or Wheezing. 90 mL 1 025 Active Active Problems Patient Care Coordination [...] premature coronary artery disease as well. Her Sammarinese Lipid score is at least 12 (LDL 299, tendon xanthoma, first degree relative with severely high Cholesterol + maternal grandfather with premature coronary artery disease). Follows with Dr. Grayson Hernandez at [facility]. Resolved Problems Problem [...] Encounters Date Type Department Care Team Description 03/26/2025 11:00 AM CDT Office Visit [address] [address] Casandra Lopez PA Follow Up (Asthma Exacerbation - seen at [place] [facility] 03/23/2025, today patient has a lot of coughing and easily winded and chest heaviness ) 03/25/2025 Travel 03/23/2025 Orders Only [facility] Scanner 1 scan: (1-Ord) [facility], XR CHEST 2 VIEW, 03/23/2025 03/14/2025 1:00 PM CDT Office Visit [address] [address] Katherin Pathak LICSW Follow Up 03/13/2025 Travel 03/07/2025 9:00 AM CDT Patient Outreach [facility] [id number] [place] [address] [place] [address] RN Diabetes (Yearly assessment) 03/06/2025 Travel 02/28/2025 10:30 AM CDT Office Visit [address] [address] Katherin Pathak LICSW Follow Up 02/27/2025 Travel 02/21/2025 9:30 AM CDT Office Visit [address] [address] Katherin Pathak LICSW Anxiety; Depression 02/20/2025 Travel 02/14/2025 7:30 AM CDT Office Visit [address] [address] Casandra Lopez PA Physical (Fasting ); Diabetes [...] IIV3 (Age >=3 years) 07/14/2021 Influenza, IIV4 08/11/2023, 2,09/17/2020,06/17,07/06/2017,06/14/2016,07/15/20 15 Influenza, Injectable, Mdck, Quadrivalent, W/preservative 07/14/2021 [...] Mother Becky Hypertension Mother Becky Obesity Mother Becyk Osteoarthritis Mother Becky Thyroid Disease Mother Becky Hypothyroidi sm Coronary artery disease Paternal Grandfather [place] Heart attack Paternal Grandfather Giuseppe in his 50-60s Hyperlipidemia Paternal Grandfather Giuseppe Hypertension Paternal Grandfather [place] Cancer-breast Paternal Grandmother [place] Clotting disorder Paternal Grandmother [place] Obesity Paternal Grandmother [place] Stroke Paternal Grandmother [place] Diabetes Paternal Uncle Nick Type II Stroke Paternal Uncle Nick Anesthesia Problem No Family History Blood Disease No Family History Relation Name Status Comments Brother 1 Christofer Alive Brother 2 Massimo Alive Father Kodi Alive Maternal Grandfather shira (Age 35) Maternal Grandmother Camille (Age 72) Maternal Uncle 1 Yinka Maternal Uncle 2 Mother Becky Alive Paternal Grandfather Giuseppe (Age 67) Paternal Grandmother Sofia (Age 72) Paternal Uncle Nick Social History [...] PM CDT Legal Sex Female 5:19 AM HEAD BU[employer] Gender Identity Female 05/18/2021 11:42 PM CDT [...] Sign Reading Time Taken Comments Blood Pressure 128/62 03/26/2025 11:07 AM CDT Pulse 89 03/26/2025 11:07 AM CDT Temperature 37.1 C (98.7 F) 03/26/2025 11:07 AM CDT Respiratory Rate 16 03/20/2023 11:2 8 AM CDT Oxygen Saturation 94% 03/26/2025 11: 07 AM CDT Inhaled Oxygen Concentration - - Weight 153.4 kg (338 lb 1.6 oz) 025 11:07 AM CDT Height 171 cm (5' 7.32) 03/26/2025 11: 07 AM CDT Body Mass Index 52.45 03/26/2025 11:07 AM CDT Plan of Treatment Upcoming Encounters Date Type Department Care Team (Late st Contact Info) Description 05/30/2025 12:00 PM CDT Patient Outreach [facility] [address] [facility] [address] [place] [address] RN [address] [place] [address] Health Maintenance Due Date Last Done Comments COVID-19 vaccine series ( season) 2024 08/11/2023, 11/16/2020, 10/16/2020 Influenza Vaccine (#1) 2025 , 09/07/2022, 07/14/2021, Additional history exists Depression screening for age 12+ 02/14/2026 02/14/2025, 12/10/2024, 11/29/2024, Additional history exists BMI (ht and wt on same day) for age 18+ 03/26/2026 03/26/2025, 02/14/2025, 07/02/2024, Additional history exists Pap test for age 21-65 02/22/2029 , 02/23/2024, 10/07/2020, Additional history exists Tetanus booster 08/29/2029 08/29/2019, 09/0 04/2011, 02/03/2003 Hepatitis B series for 19+ Completed 03/28, 07/01/1996, 05/30/1996 HIV for age 15-65 Completed 01/23/2023 Hepatitis C screening for ag e 18-79 Completed 01/23/2023 Pneumococcal series for age 6-49 Completed 01/24/20 23 Procedures Procedure Name Priority Date/Time Associated Diagnosis Comments SCAN-RADIOLOGY REPORT 03/23/2025 12:00 AM CDT BASIC METABOLIC PANEL Routine 02/14/2025 7:33 AM [...] Recently Relevant to Health Maintenance Results * SCAN-RADIOLOGY REPORT (03/23/2025 12:00 AM CDT) Anatomical Region Laterality Modality Other us Scanner OTHER Final Result * (ABNORMAL) BASIC METABOLIC PANEL (02/14/2025 7:33 AM CDT) GLUCOSE 100(H) 65 - 99 mg/dL [facility] Comment: Fasting reference interval For someone without known diabetes, a glucose value between 100 and 125 mg/dL is consistent with prediabetes and should be confirmed with a follow-up test. UREA NITROGEN (BUN) 11 7 - 25 mg/dL [facility] CREATININE 0.69 0.50 - 0.97 mg/dL [facility] EGFR 117 > OR = 60 mL/min/1. 73m2 [facility] BUN/CREATININE RATIO SEE NOTE: 6 - 22 (calc) [facility] Comment: Not Reported: BUN and Creatinine are within reference range. SODIUM 139 135 - 146 mmol/L [facility] POTASSIUM 4.1 3.5 - 5.3 mmol/L [facility] CHLORIDE 104 98 - 110 mmol/L [facility] CARBON DIOXIDE 27 20 - 32 mmol/L [facility] ELECTROLYTE BALANCE 8 7 - 17 mmol/L (calc) [facility] CALCIUM 9.6 8.6 - 10.2 mg/dL [facility] Blood BLOOD SPECIMEN / Unknown 02/14/2025 7:33 AM CDT 02/14/2025 7:38 AM CDT Narrative [facility] - 02/15/2025 4:25 AM CDT FASTING:YES FASTING: YES Casandra BYRD CHEMISTRY Final Result [employer] [facility] [address] [place] [address], [employer] [address] [place] [address] * (ABNORMAL) POCT Hemoglobin A1C Monitoring (02/14/2025 7:32 AM CDT) POC HEMOGLOBIN A1C 6.1(H) <6.0 % OF TOTAL HGB [facility] Comment: Any point of care results exhibiting inconsistency with the patient's clinical status should be repeated using a different testing method. Blood BLOOD SPECIMEN / Unknown 02/14/2025 7:32 AM CDT 02/14/2025 7:32 AM CDT us Casandra BYRD CHEMISTRY Final Result [facility] [id number] [place] [id number] [address] * URINE ALBUMIN TO CREATININE RATIO, RANDOM (02/14/2025 7:31 AM CDT) ALB RAND URINE 103.0 mg/L 02/14/2025 3:37 PM CDT [facility] CREATININE,URIN E 3.55 g/L 02/14/2025 3:37 PM CDT [facility] ALBUMIN TO CREATININE RATIO,RAND UR 29.0 <30.0 mg/g creat 02/14/2025 3:37 PM CDT [facility] Urine URINE SPECIMEN / Unknown [facility] / Unknown 02/14/2025 7:31 AM CDT 02/14/2025 7:31 AM CDT Narrative [facility] - 02/14/2025 3:37 PM CDT If Albumin to Creatinine Ratio is elevated, consider the following: Elevations seen with incipient nephropathy associated with diabetes mellitus or hypertension. Stress, exercise,hematuria, and urinary tract infection may also produce elevated results. If clinically indicated, confirm with 24 Hour Albumin to Creatinine Ratio. us Casandra BYRD URINE Final Result Performing Organization Address City/[facility]/ZIP Co de Phone Number [facility] [address] [place] [address], * HPV HIGH RISK (02/23/2024 9:20 AM CDT) TYPE 16 Negative Negative 02/27/2024 4:53 PM CDT [facility] TYPE 18 Negative Negative 02/27/2024 4:53 PM CDT [facility] OTHER HIGH RISK TYPES Negative Negative 02/27/2024 4:53 PM CDT [facility] Other (Cervical) Non-Blood / Unknown 02/23/2024 9:20 AM CDT 02/26/2024 9:29 AM CDT Narrative [facility] - 02/27/2024 4:53 PM CDT HPV types 16, 18, 31, 33, 35, 39, 45, 51, 52, 56, 58, 59, 66 and 68 DNA were undetectable or below the pre-set threshold. Methodology: Tez Armando 4800 HPV Test Casandra BYRD MICROBIOLOGY Final Result Performing Organization Address [facility] Co de Phone Number [facility] [address] [place] [address], * LC HCV ANTIBODY RFX TO QUANT PCR (01/23/2023 9:07 AM CDT) HCV Ab Non Reactive Non Reactive 01/25/2023 10:07 PM CDT [facility] ([facility]) Blood BLOOD SPECIMEN / Unknown Venipuncture / Unknown 01/23/2023 9:07 AM CDT 01/23/2023 9:08 AM CDT [facility] ([facility]) - 01/25/2023 10:07 PM CDT Performed at: [address] [place] [id number] Spine Supervisor: Prabhu Patel MD, Phone: [phone] us Khadra Garcia MD LABORATORY Final Result [facility] ([facility]) [address] [place] [address] * LC HIV-1/O/2, 4TH GENERATION (01/23/2023 9:07 AM CDT) HIV Scr 4th Gen Non Reactive Non Reactive 01/25/2023 10:07 PM CDT [facility] ([facility]) Comment: HIV Negative HIV-1/HIV-2 antibodies and HIV-1 p24 antigen were NOT detected. There is no laboratory evidence of HIV infection. Blood BLOOD SPECIMEN / Unknown Venipuncture / Unknown 01/23/2023 9:07 AM CDT 01/23/2023 9:08 AM CDT Narrative [facility] ([facility]) - 01/25/2023 10:07 PM CDT Performed at: [address] [place] [id number] Spine Supervisor: Prabhu Patel MD, Phone: [phone] us Khadra Garcia MD LABORATORY Final Result [facility] ([facility]) [address] [place] [address] from Last 3 Months or Most Recently Relevant to Health Maintenance Insurance [facility] Member Subscriber Plan / Payer (Ef fective 2024-Present) Name:Celsa Tyson Relation to Subscriber:Self Name:Celsa Tyson Payer ID:[id number] (NAIC) Type:Not on file Address: [facility] [id number] [place] [phone] Advance Directives * Full Code (Latest Code Status on File) Date Activated Date Inactivated Comments 09/30/2016 6:38 AM 10/04/2016 3:58 PM * Full Code Date Activated Date Inactivated Comments 02/25/2015 6:07 AM 02/25/2015 4:21 PM Care Teams Php Programmer Relationship Specialty [place] [address] [place] [address] PCP - General Physician Inhalation Therapy Teacher 10/26/20 Rhina Hernandez MD [address] [place] [address] Consulting Physician Cardiovascular Disease 12/23/14 Patricia Flowers MD Neurology 07/16/18 Edinson Burrell [address] [address] Dermatology 07/16/18 Tara Allison NP [address] [address] Consulting Physician Nurse Practitioner 07/23/[address] [facility] [address] [place], [place] [id number] Registered Dietitian Vp Of Product 10/29/18 Tiffanie Bee PA [address] [facility] 400 [place] [address] Physician's Inhalation Therapy Teacher Cardiovascular Disease 04/22/[address] [place] [address] Registered Dietitian Vp Of Product 10/28/20 Carolina Acevedo, ASSEMBLY DETAILER [address] [place] [address] Nurse Practitioner Nurse Practitioner - Family 10/28/20 Casandra Lopez PA [address] [place] [address] Physician's Inhalation Therapy Teacher Physician Inhalation Therapy Teacher 10/26/20 Marj Cross, SALLY [address] [place] [address] Clinical Nurse Specialist 07/01/[address] [place], [place] [id number] Vp Of Product 07/01/22 Thuan Alexis, MARTA [address] [place], [place] [id number] Registered Nurse 07/01/[address] [place] [address] [place] [address] Senior Enlisted Advisor Registered Nurse 03/07/25 10/20/25
--- OUTSIDE RECORDS SUMMARY | 2025-05-04 12:15 | XMS_ITS | Data Portability ---
Author Organization [facility] Ced[facility] CREDIT CASHIER, [id number] Address [address] [place] [address] [address] [place] [address] Assessment No assessment recorded. Plan of Treatment Reminders Order Date Submit Date Provider Last Modified By Organization Details Last Modified Time Details Appointments None recorded. Lab CBC 2020 [facility], [address] [place], [address], 15:41:06 hemoglobin (Hb), blood 2020 021 [facility], [address] [place], [address], 22:52:30 Referral None recorded. Procedures None recorded. Surgeries None recorded. Imaging US, transvagina l 2020 021 lneal40 [id number]_nakikst [facility], [address], [place], [address], 17:45:16 Medication Orders Provera 10 mg tablet 2020 021 [id number], [address], [place], [address], 12:31:43 Provera 10 mg tablet 2020 021 [id number], [address], [place], [address], 12:31:43 Patient TargetsNo targets recorded. Patient InstructionsNo instructions recorded. Reason for Referral None Reported. Results Created Date Observation Date Name Description Value Unit Range Abnormal Flag Note LastModifiedBy Organization Detail LastModifiedTime 01/22/20 21 01/21/2021 hemog lobin (Hb), blood hemoglobin 8.6 gm/dL 12.0-1 6.0 low Not Available [facility] [address] [place], [address], 01/21/2021 22:52:30 02/19/20 21 02/18/2021 CBC WBC 6.0 K/uL 4.3-10 .8 Not Available [facility] [address] [place], [address], 02/18/2021 15:41:06 02/19/20 21 02/18/2021 CBC RBC 4.21 M/uL 4.20-5 .40 Not Available [facility] [address] [place], [address], 02/18/2021 15:41:06 02/19/20 21 02/18/2021 CBC hemoglobin 10.1 gm/dL 12.0-1 6.0 low Not Available [facility] [address] [place], [address], 02/18/2021 15:41:06 02/19/20 21 02/18/2021 CBC hematocrit 33.6 % 36.0-4 8.0 low Not Available [facility] [address] [place], [address], 02/18/2021 15:41:06 02/19/20 21 02/18/2021 CBC MCV 80 fL 80-100 Not Available [facility] [address] [place], [address], 02/18/2021 15:41:06 02/19/20 21 02/18/2021 CBC MCH 24 pg 27-33 low Not Available [facility] [address] [place], [address], 02/18/2021 15:41:06 02/19/20 21 02/18/2021 CBC MCHC 30 gm/dL 33-36 low Not Available [facility] [address] [place], [address], 02/18/2021 15:41:06 02/19/20 21 02/18/2021 CBC RDW 17.2 % 11.5-1 4.5 high Not Available [facility] [address] [place], [address], 02/18/2021 15:41:06 02/19/20 21 02/18/2021 CBC platelet count 267 K/uL 150-40 0 Not Available [facility] [address] [place], [address], 02/18/2021 15:41:06 02/19/20 21 02/18/2021 CBC MPV 10.7 6.5-12 Not Available [facility] [address] [place], [address], 02/18/2021 15:41:06 01/29/20 21 US, trans vagin al No observ ation record ed. [email or web address] Birgit [address], [place], [address], 02/03/2021 09:49:36 Result Notes None recorded. Procedures Surgical History Date Name Laterality Status Provider Name and Address Organization Details Recorded Time 02/05/20 21 Mirena, 52 [place] [address] [facility],[address], [place], [address], [place] [facility] CREDIT CASHIER 02/18/2021 12:32:10 02/05/20 21 HYSTEROSCOPY, SURGICAL, WITH BIOPSY OF ENDOMETRIUM AND/OR POLYPECTOMY (SURG) completed Suzi Garcia (TERMED) [facility] CREDIT CASHIER 02/09/2021 23:58:39 09/15/20 20 Date [facility] 01/21/2021 16:05:04 10/16/19 18 [facility] 01/21/2021 16:12:17 10/16/19 16 open stone operation on kidney or [facility] 01/21/2021 16:12:07 10/16/19 08 extraction of wisdom tooth completed [facility] CREDIT CASHIER 01/21/2021 16:12:28 Imaging Results None recorded. Procedure Notes None recorded. Medical Equipment None Reported. Allergies Allergen ID Allergen Name Allergen Category Reaction Reaction Severity Criticality Documentation Date Start Date Code Code System Note Provider Name and Address Organization Details Recorded Time niacin medicatio n flushing Not available Not available 01/21/2021 7393 RxNorm Jessica Chuck verdugo [facility] CREDIT CASHIER 15:30:44 Medications Name Sig Start Date Stop [...] THE MORNING 30 MINUTES BEFORE BREAKFAST . 04/08 /2021 completed Not Available Not Available Not Available [...] Body mass index (BMI) Body height Systolic And Diastolic Provider Name and Address Organization Details Last Updated DateTime 01/21/2021 757789.49 g 44.2 kg/m2 170.18 cm 140/86 mm[Hg] Jessica Cedillo CREDIT CASHIER 01/21/2021 15:29:49 Date Recorded Body height Systolic And Diastolic Provider Name and Address Organization Details Last Updated DateTime 01/28/2021 170.18 cm 120/84 mm[Hg] Jessica alcantara CREDIT CASHIER 01/28/2021 09:36:41 Date Recorded Body height Body mass index (BMI) Body weight Systolic And Diastolic Provider Name and Address Organization Details Last Updated DateTime 02/18/2021 170.18 cm 43.1 kg/m2 097594.9 g 122/74 mm[Hg] Laura Carreon(TE ) [facility] CREDIT [facility] 02/18/2021 10:44:15 Social History Question Answer Notes LastModified by [email or web address] ion Details LastModified Time Tobacco Smoking Status Never Smoker [facility] CREDIT C[facility]IER 01/21/2021 16:08:27 What Is Your Level Of [...] 2020 16:08:01 Medical History Condition Response Psych- Anxiety Disorder Y Neurology- Headaches/Migraines Y Psych- Depression Y Cardiology- High Cholesterol Y Endocrinology- Thyroid Problems Y Pulmonary- Asthma Y Urology- Stones Y Gynecological History Statement/Question Response Current Control Method None Date of Last Pap Smear 09/15/2020 Age at Menarche: 11 Date of Last Cholesterol Screening 09/15 Date of LMP 11/20/2020 Obstetrics History GPAL:G 0 P 0 0 0 0 Immunizations Vaccine Type Date Status Note Provider Nam e and Address Organization Details Recorded Time SARS-COV-2 (COVID-19) vaccine, UNSPECIFIED 11/16/2020 completed Jessica Woods null, [facility] CASHIER 01/21/2021 15:25:31 SARS-COV-2 (COVID-19) vaccine, UNSPECIFIED 10/16/2020 completed Jessica Will null, [facility] CR[facility] C[facility]IER 01/21/2021 15:25:42 Past Encounters Encounter ID Performer Location Encounter Start Date Encounter Closed Date Diagnosis/Indication Diagnosis SNOMED-CT Code Diagnosis ICD10 Code Diagnosis Note [id number] DAMON JOLLY MD [id number] ,[address] [facility] [place] [address] 01/21/2021 15:21:42 01/21/2021 16:40:31 Abnormal uterine bleeding 9491165764 9100 N93.9 - Discussed PALM COEIN etiology [...] defer until ultrasound . - Will Obesity 299867320 E66.9 History of Graves' disease 8374039726 61921 Z86.39 In remission, no meds. TSH within last 4 months was normal. [id number] DAMON JOLLY MD [id number] ,[address] [facility] [place] [address] 01/28/2021 08:34:23 02/01/2021 17:45:15 Abnormal uterine bleeding 7371012726 9100 N93.9 - Discussed PALM COEIN etiology [...] will defer until ultrasound . - Will [id number] DAMON JOLLY MD [id number] ,[facility] [address] [facility] [place] [address] 01/28/2021 09:30:28 01/28/2021 15:38:58 Abnormal uterine bleeding 3094032832 9100 N93.9 - Discussed PALM COEIN etiology [...] bleeding worsens. - Pre-op with PCP Obesity 583319065 E66.9 [id number] DAMON JOLLY MD [id number] ,[address] [facility] [place] [address] 02/18/2021 10:36:12 02/18/2021 12:49:00 Anemia 151892145 D64.9 - Repeat CBC today. Postoperative visit 1836 73407 Z09 - Doing well post-opera tively - [...] Member ID Guarantor Name 02/08/2021 1 PREFERREDONE [id number] Celsa Tyson [id number] Celsa Tyson 02/15/2021 1 PREFERREDONE (PPO) [id number] Celsa Tyson [id number] Celsa Tyson Notes Date Note Type Note Provider Name and Address Organization Details Recorded Time 01/21/2021 text/html Abnormal Bleedin g ([facility])Reported bypatient.Patient Relationship with Practice:new patient Presents for:a [...] the size of a baseball. Has had kjzdipqlc30 days. Changing tampons every 2 hours. Was having to use two tampons at a time. At night using pads. Had physical 09/2020. TSH normal.Not sexually [id number]. Prior to a year ago periods were [...] normal[place] [address] [facility],[address], [place], [address], [facility] CREDIT CASHIER 01/21/2021 16:33:27 01/28/2021 text/html 30yo G0 here [...] Hgb returned at 8.6. 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 Continuing on provera. Feeling less lightheaded today. US: 8.3 cm anteverted uterus with 14 mm EMS, possible 1.3 cm polyp with feeder vessel. Right ovary normal. Left ovary with 4.7 cm simple cyst. [place] [address] [facility],[address], [place], [address], [facility] CREDIT CASHIER 01/28/2021 14:51:57 02/18/2021 text/html Post-Op PARKING ANALYST ()Reported bypatientDonny whiting Date:02/04/21 Surgical Procedure:dilation and curettage; hysteroscopy; [...] decrease/cessation of bleeding post-[place] [address], [place], [address], [facility] CREDIT CASHIER 02/18/2021 12:39:20 OBGyn Episode No OBEpisode recorded.
[2025-05-04 12:20] VITALS: BP 150/84; PULSE 96; RESP 18; TEMP 36.8; O2SAT 95; BMI 51.7
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
--- NOTE | 2025-05-04 12:39 | CRLHL7_ITS ---
For Patients: As a result of the Century Cures Act, medical imaging exams and procedure reports are released immediately into your electronic medical record. You may view this report before your referring provider. If you have questions, please contact your health care provider. INDICATION: Dyspnea. TECHNIQUE: Chest radiographs, 2 views. COMPARISON: Chest radiographs 03/23/2025. FINDINGS: Cardiovascular/Mediastinum: Normal heart size. Unremarkable. Lungs: No focal consolidation. Airways: Trachea remains midline. Pleura: No pleural effusions or pneumothorax. Bones: No acute osseous abnormalities. Upper abdomen: Unremarkable. IMPRESSION: No acute cardiopulmonary process. Dictated by Demetri Aparicio MD @ 05/04/2025 1:25:52 PM (Electronically Signed)
[2025-05-04 12:41] VITALS: RESP 22; O2SAT 96
[2025-05-04 12:49] VITALS: O2SAT 97
[2025-05-04 13:11] LABS: Hematocrit 39.0 % (33.0-51.0); Hemoglobin* 12.8 gm/dL (12.0-16.0); Immature Granulocytes Abs Auto 0.01 K/uL (0.00-0.30); Immature Granulocytes Pct Auto 0.1 %; Mean Corpuscular HGB Conc 33 gm/dL (32-36); Mean Corpuscular Hemoglobin 27 pg (26-34); Mean Corpuscular Volume 83 fL (80-100); RDW Coefficient of Variation % 14.4 % (11.5-15.5); Red Blood Count 4.72 m/uL (4.00-5.20); White Blood Count* 6.67 K/uL (4.50-11.00)
[2025-05-04 13:14] VITALS: TEMP 36.9
[2025-05-04 13:31] LABS: Lymphocytes Absolute Auto 0.50 K/uL (0.90-2.90); Slide Review Reflex No
[2025-05-04 13:34] LABS: PCR FLU A Negative PCR FLU A (Negative); PCR FLU B Negative PCR FLU B (Negative); PCR RSV Negative PCR RSV (Negative); SARS PCR* POSITIVE SARS-CoV-2 (Negative)
[2025-05-04 13:45] VITALS: BP 116/66; PULSE 94; RESP 19; TEMP 36.8; O2SAT 97
== END 2025-05-04 14:23 | disposition home or self-care (01) ==
PROVIDERS: Emergency Provider Family Medicine; PCP Physician Assistant
DX: U07.1 COVID-19 (principal)
CPT/HCPCS: 36415; 71046; 85025; 86140; 87631; 94761; 99284

== ENCOUNTER 2025-05-23 09:43 | Emergency (ER) | payer BC, SELFPAY ==
--- OUTSIDE RECORDS SUMMARY | 2025-05-23 09:45 | XMS_ITS | Clinical Summary ---
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 Gender Identity Not on file Sexual Orientation [...] Description 06/02/2025 11:20 AM CDT Hospital Encounter [facility] [address] [place] [address] Krishan Berg MD [address] [address] 06/02/2025 11:20 AM CDT - 06/02/2025 12:10 PM CDT Surgery [facility] [address] [place] [address] Krishan Berg MD [address] [address] Colonoscopy Scheduled Procedures Name Priority Associated Diagnoses Date/Ti me COLONOSCOPY Family history of adenomatous polyp of colon 06/02/2025 11:20 AM CDT Medical Devices Implanted Type Area Haulage Engine Operator Device Identifier Shelf Expiration Date Model / Serial / Lot Iud Contraceptive Device Mirena [id number] Implanted:Qty: 1 on 02/04/2021 by Radha Dover MD at [facility] Contraceptive Device N/A: Vagina TIMOTHY 06/15/2023 [id number] / / [id number] [place] Sub[place] Plan / Payer (Ef fective 2024-Present) Name:Celsa Tyson Relation to Subscriber:Self Name:Celsa Tyson Payer ID:[id number] (NAIC) Type:Indemnity Address: [place] [phone] Care Teams Shed Boss Relationship Specialty Start Date End Date Casandra Lopez PA-C PCP - General 02/04/21
--- OUTSIDE RECORDS SUMMARY | 2025-05-23 09:45 | XMS_ITS | Clinical Summary ---
[facility] Organization [facility] Address [address] [place] [id number] Care Team Providers Care Desktop Technician Name Role Phone ParamemiliaRhina espinal MD Unavailable Patricia Flowers MD Unavailable Unavailable Edinson Burrell Unavailable [phone] Tara Allison CURTAIN CLEANER Unavailable Diann Lewis RD Unavailable Tiffanie Bee Unavailable Liyah Pyle RD Unavailable Unavailab Carolina Alcaraz CURTAIN CLEANER Unavailable Unavailable Casandra Lopez Unavailable [phone] Casandra Lopez Primary Care Provider Marj Cross OPERATIONS PLANT ATTENDANT Unavailable [phone] Unavailable Thuan Alexis [...] times daily. 30 tablet 2 010 Active vzydbph-djzldwzbgqcoq-g affeine, 250-250-65 mg, (EXCEDRIN MIGRAINE) 250-250-65 mg [...] mouth at bedtime. 90 Tablet 3 Active fruit receiver (Dexcom G7 Knit Goods Cutter Hand) for continuous blood glucose monitor (CGM)Indications:Type 2 diabetes mellitus with other specified complication, without long-term current use of insulin (HC) This is for the glucose BARBECUE COOK , also order the sensors. 1 Each Active sensor (Dexcom G7 Sensor) for continuous blood glucose monitor (CGM)Indications:Type 2 diabetes mellitus with other specified complication, without long-term current use of insulin (HC) To be used to read blood sugars, change sensor every 10 days. This is for the glucose SENSOR, also order the fruit receiver. 9 Each 3 025 Active semaglutide (Ozempic) [...] premature coronary artery disease as well. Her [place] Citizen Lipid score is at least 12 (LDL 299, tendon xanthoma, first degree relative with severely high Cholesterol + maternal grandfather with premature coronary artery disease). Follows with Dr. Grayson Hernandez at [facility]. Resolved Problems Problem [...] Encounters Date Type Department Care Team Description 05/22/2025 Travel 05/04/2025 Orders Only [facility] Scanner 1 scan: (1-Ord) [facility], XR CHEST 2V, 05/04/2025 03/26/2025 11:00 AM CDT Office Visit [facility] [address] [place] [address] Casandra Lopez PA Follow Up (Asthma Exacerbation - seen at [facility] 03/23/2025, today patient has a lot of coughing and easily winded and chest heaviness ) 03/25/2025 Travel 03/23/2025 Orders Only [facility] Scanner 1 scan: (1-Ord) [facility], XR CHEST 2 VIEW, 03/23/2025 03/14/2025 1:00 PM CDT Office Visit [facility] [id number] [place] [address] Katherin Pathak LICSW Follow Up 03/13/2025 Travel 03/07/2025 9:00 AM CDT Patient Outreach [facility] [address] [facility] [address] [place] [address] RN Diabetes (Yearly assessment) 03/06/2025 Travel 02/28/2025 10:30 AM CDT Office Visit [facility] [id number] [place] [address] Katherin Pathak LICSW Follow Up 02/27/2025 Travel 02/21/2025 9:30 AM CDT Office Visit [facility] [id number] [place] [id number] Katherin Pathak LICSW Anxiety; Depression 02/20/2025 Travel from Last 3 Months Immunizations Immunization [...] Hypertension Maternal Grandfather shira Stroke Maternal Grandmother aCmille Alcoholism Maternal Uncle 1 Yinka COPD Maternal Uncle 1 Yinka Hyperlipidemia Maternal Uncle 1 Yinka Hyperlipidemia Maternal Uncle 2 Allergies Mother Becky Anxiety disorder Mother Becky Depression Mother Becky Diabetes Mother Becky Hyperlipidemia Mother Becky Hypertension Mother Becky Obesity Mother Becky Osteoarthritis Mother Becky Thyroid Disease Mother Becky Hypothyroidi sm Coronary artery disease Paternal Grandfather Wilber Heart attack Paternal Grandfather Giuseppe in his 50-60s Hyperlipidemia Paternal Grandfather Giuseppe Hypertension Paternal Grandfather Giuseppe Cancer-breast Paternal Grandmother [place] Clotting disorder Paternal Grandmother [place] Obesity Paternal Grandmother [place] Stroke Paternal Grandmother [place] Diabetes Paternal Uncle Nick Type II Stroke Paternal Uncle Nick Anesthesia Problem No Family History Blood Disease No Family History Relation Name Status Comments Brother 1 Christofer Alive Brother 2 Massimo Alive Father Kodi Alive Maternal Grandfather shira (Age 35) Maternal Grandmother Camille (Age 72) Maternal Uncle 1 Yinka Maternal Uncle 2 Mother Becky Alive Paternal Grandfather Wilber (Age 67) Paternal Grandmother Sofia (Age 72) [...] PM CDT 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 Gender Identity Female 05/18/2021 11:42 PM CDT Sexual Orientation Straight 05/18/2021 11 :42 PM CDT 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 Not on file Not on file Not on file Travel History Travel Start Travel End [place] 05/13/2025 05/19/2025 [place] 04/28/2025 05/02/2025 Obstetrics History Para Term AB IAB SAB [...] Care Team (Late st Contact Info) Description 05/26/2025 7:55 AM CDT Office Visit [facility] [address] [place] [address] [place] [address] 05/30/2025 12:00 PM CDT Patient Outreach [facility] [address] [facility] [address] [place], [place] [id number] Alyssa Lane RN [address] [place] [id number] Health Maintenance Due Date Last Done Comments [...] Priority Date/Time Associated Diagnosis Comments SCAN-RADIOLOGY REPORT 05/04/2025 12:00 AM CDT SCAN-RADIOLOGY REPORT 03/23/2025 12:00 AM CDT HPV HIGH RISK Routine 02/23/2024 9:20 AM [...] to Health Maintenance Results * SCAN-RADIOLOGY REPORT (05/04/2025 12:00 AM CDT) Only the most recent of2 resultswithin the time period is included. Anatomical Region Laterality Modality Other Scanner OTHER Final Result * HPV HIGH RISK (02/23/2024 9:20 AM CDT) TYPE 16 Negative Negative 02/27/2024 4:53 PM CDT [facility] TYPE 18 Negative Negative 02/27/2024 4:53 PM CDT [facility] OTHER HIGH RISK TYPES Negative Negative 02/27/2024 4:53 PM CDT [facility] Other (Cervical) Non-Blood / Unknown 02/23/2024 9:20 AM CDT 02/26/2024 9:29 AM CDT Narrative [facility] - 02/27/2024 4:53 PM CDT HPV types 16, 18, 31, 33, 35, 39, 45, 51, 52, 56, 58, 59, 66 and 68 DNA were undetectable or below the pre-set threshold. Methodology: Tez Armando 4800 HPV Test Casandra BYRD MICROBIOLOGY Final Result [facility] [address] [place] [address], * LC HCV ANTIBODY RFX TO QUANT PCR (01/23/2023 9:07 AM CDT) HCV Ab Non Reactive Non Reactive 01/25/2023 10:07 PM CDT [facility] ([facility]) Blood BLOOD SPECIMEN / Unknown Venipuncture / Unknown 01/23/2023 9:07 AM CDT 01/23/2023 9:08 AM CDT Narrative [facility] ([facility]) - 01/25/2023 10:07 PM CDT Performed at: [address] [place] [id number] Automatic Folder Seamer: Prabhu Patel MD, Phone: [phone] us Khadra Garcia MD LABORATORY Final Result [facility] ([facility]) [address] [place] [address] * LC HIV-1/O/2, 4TH GENERATION (01/23/2023 9:07 AM CDT) HIV Scr 4th Gen Non Reactive Non Reactive 01/25/2023 10:07 PM CDT [facility] ([facility]) Comment: HIV Negative HIV-1/HIV-2 antibodies and HIV-1 p24 antigen were NOT detected. There is no laboratory evidence of HIV infection. Blood BLOOD SPECIMEN / Unknown Venipuncture / Unknown 01/23/2023 9:07 AM CDT 01/23/2023 9:08 AM CDT Narrative [facility] ([facility]) - 01/25/2023 10:07 PM CDT Performed at: [address] [place] [id number] Automatic Folder Seamer: Prabhu Patel MD, Phone: [phone] us Khadra Garcia MD LABORATORY Final Result Performing Organization Address City/[facility]/ZIP Co de Phone Number [facility] ([facility]) [address] [place] [address] from Last 3 Months or Most Recently Relevant to Health Maintenance Insurance [facility] Advance Directives * Full Code (Latest Code Status on File) Date Activated Date Inactivated Comments 09/30/2016 6:38 AM 10/04/2016 3:58 PM * Full Code Date Activated Date Inactivated Comments 02/25/2015 6:07 AM 02/25/2015 4:21 PM Care Teams Desktop Technician Relationship Specialty [place] [address] [place] [address] PCP - General Physician Accounts Payable Bookkeeper 10/26/20 Rhina Hernandez MD [address] [place] [address] Consulting Physician Cardiovascular Disease 12/23/14 Patricia Flowers MD Neurology 07/16/18 Edinson Burrell [address] [address] Dermatology 07/16/18 Tara Allison NP [address] [address] Consulting Physician Nurse Practitioner 07/23/[address] [facility] [address] [place], [place] [phone] Registered Dietitian Soil Surveyor 10/29/18 Tiffanie Bee PA [address] [facility] [address] [place], [place] [phone] Physician's Accounts Payable Bookkeeper Cardiovascular Disease 04/22/[address] [place] [address] Registered Dietitian Soil Surveyor 10/28/20 Carolina Acevedo, CURTAIN CLEANER [address] [place] [address] Nurse Practitioner Nurse Practitioner - Family 10/28/20 Casandra Lopez PA [address] [place] [address] Physician's Accounts Payable Bookkeeper Physician Accounts Payable Bookkeeper 10/26/20 Marj Cross CNS [address] [place] [address] Clinical Nurse Specialist 07/01/[address] [place], [place] [phone] Soil Surveyor 07/01/22 Thuan Alexis, MARTA [address] [place] [address] Registered Nurse 07/01/[address] [place] [address] [place] [address] Child And Family Services Specialist Registered Nurse 03/07/25 10/20/25
[2025-05-23 09:49] VITALS: BP 148/76; PULSE 88; RESP 20; TEMP 36.4; O2SAT 98; BMI 51.7
--- NOTE | 2025-05-23 10:00 | CRLHL7_ITS ---
For Patients: As a result of the Cures Act, medical imaging exams and procedure reports are released immediately into your electronic medical record. You may view this report before your referring provider. If you have questions, please contact your health care provider. INDICATION: Cough COMPARISON: May 04, 2025 TECHNIQUE: PA and lateral views of the chest were acquired FINDINGS: TUBES AND LINES: None. HEART AND MEDIASTINUM: The heart size is normal. The mediastinal contour appears normal for patient age. LUNGS AND PLEURAL SPACES: The lungs appear normal.The pleural spaces are unremarkable. OSSEOUS STRUCTURES: Age-appropriate appearance. No acute focal finding. IMPRESSION: No evidence of active pulmonary disease. Dictated by Tony Agarwal MD @ 05/23/2025 10:21:46 AM (Electronically Signed)
--- NOTE | 2025-05-23 10:01 | ED.GENADULT ---
HPI - General Adult General Chief complaint: Fever Stated complaint: cough and fever Time Seen by Provider: 05/23/25 09:46 History of Present Illness HPI narrative: Patient is a 34-year-old woman who was diagnosed with COVID-19 3 weeks ago. She has gotten over the initial illness but is left with a chronic cough. He has had low-grade fevers general malaise body aches and fatigue. She also has left-sided flank pain wonders if she has urinary infection. She has been eating and drinking normally. She has no rashes no bruises no stiff neck no change in her sensorium. Related Data Home Medications ?Medication ?Instructions ?Recorded ?Confirmed albuterol sulfate 90 mcg/actuation 2 puff inhalation 08/04/22 08/04/22 aerosol inhaler (Ventolin HFA) azelastine 0.05 % eye drops drp ophthalmic (eye) 08/04/22 08/04/22 buspirone 10 mg tablet 10 mg PO 08/04/22 08/04/22 ezetimibe 10 mg tablet 10 mg PO 08/04/22 08/04/22 rosuvastatin 40 mg tablet 40 mg PO 08/04/22 08/04/22 sertraline 100 mg tablet 100 mg PO 08/04/22 08/04/22 trazodone 50 mg tablet 50 mg PO 08/04/22 08/04/22 semaglutide 1 mg/dose (4 mg/3 mL) 1 mg subcut 05/04/24 subcutaneous pen injector (Ozempic) evolocumab 140 mg/mL subcutaneous 1 mg subcut Q2W 03/23/25 05/04/25 pen injector (Repatha SureLouisick) Previous Rx's ?Medication ?Instructions ?Recorded albuterol sulfate 2.5 mg/3 mL 2.5 mg (3 mL) inhalation Q4-6H PRN 03/24/25 (0.083 %) solution for nebulization #75 mL albuterol sulfate 90 mcg/actuation 2 inh inhalation Q2-3H PRN 03/24/25 aerosol inhaler shortness of breath or wheezing #8.5 grams nirmatrelvir 300 mg (150 mg See Rx Instructions PO .COMPLEX 05/04/25 x2)-ritonavir 100 mg tablet,dose #30 ea pack (Paxlovid) Allergies Allergy/AdvReac Type Severity Reaction Status Date / Time No Known Drug Allergies Allergy Verified 05/04/25 12:23 Review of Systems Status of ROS: Reports: 10 or more systems reviewed and unremarkable except as noted in History and below [facility] Social History Smoking Status: Never smoker Do you use any of these nicotine containing products: None How often do you have a drink containing alcohol: monthly or less How many standard drinks containing alcohol do you have on a typical day: 1 or 2 How often do you have six or more drinks on one occasion: Never AUDIT-C Alcohol total score: 1 Non-prescribed substance use: denies use service: No Exam Narrative: Exam Narrative: EXAM GENERAL: Patient appears comfortable and well. EYES: No scleral icterus. LYMPH: No supraclavicular or cervical lymphadenopathy. SKIN: Visible skin seen during exam normal or with benign process only. EXT: No dependent lower extremity pedal edema. HEART: Regular rate and rhythm with no murmurs, rubs, or gallops. LUNGS: Clear to auscultation bilaterally with no crackles or wheezes. ABD: Soft, non tender, non distended. PSYCH: Good eye contact, speech is not pressured. Const: Vital Signs, click to edit/add: Vital Signs - 24 hr 05/23/25 09:49 Temperature 97.5 F L Pulse Rate [Pulse Oximeter] 88 Respiratory Rate 20 Blood Pressure [Ri ght Forearm] 148/76 H Pulse Oximetry 98 Oxygen Delivery Me thod Room Air Course Course ED Course: Chest x-ray and UA pending. Vital Signs Vital signs: Initial Vital Signs Temperature 97.5 F L 05/23/25 09:49 Temperature Source Temporal Artery Scan 05/23/25 09:49 Pulse Rate 88 05/23/25 09:49 Respiratory Rate 20 05/23/25 09:49 Blood Pressure 148/76 H 05/23/25 09:49 Blood Pressure Mean 100 05/23/25 09:49 Pulse Oximetry 98 05/23/25 09:49 Oxygen Delivery Method Room Air 05/23/25 09:49 Vital Signs Temperature 97.5 F L 05/23/25 09:49 Pulse Rate 88 05/23/25 09:49 Respiratory Rate 20 05/23/25 09:49 Blood Pressure 148/76 H 05/23/25 09:49 Pulse Oximetry 98 05/23/25 09:49 Oxygen Delivery Method Room Air 05/23/25 09:49 Temperature 97.5 F L 05/23/25 09:49 Pulse Rate 88 05/23/25 09:49 Respiratory Rate 20 05/23/25 09:49 Blood Pressure 148/76 H 05/23/25 09:49 Pulse Oximetry 98 05/23/25 09:49 Oxygen Delivery Method Room Air 05/23/25 09:49 Medical Decision Making MDM Narrative Medical decision making narrative: Patient presents 3 weeks after having COVID-19 with a nonproductive cough. Chest x-ray is unremarkable. Her vital signs are stable. She has some mild flank pain but her UA is unremarkable. I think her most likely diagnosis is postinfectious cough. She will try to quit smoking and we will treat with short course of prednisone. Primary care follow-up as needed. Lab Data Labs: Lab Results 05/23/25 Range/Units 10:10 Urine Color Yellow (Yellow) Urine Appearance Clear (Clear) Urine pH 7.0 (5.0-8.5) Ur Specific [place] 1.015 (1.000-1.030) Urine Protein Negative (Negative) Urine Glucose (UA) Negative (Negative) Urine Ketones Negative (Negative) Urine Blood 1+ A (Negative) Urine Nitrite Negative (Negative) Urine Bilirubin Negative (Negative) Urine Urobilinogen 0.2 (0.2-1.0) Ur Leukocyte Esterase Negative (Negative) Urine RBC 0-2 (0-2) Urine WBC 0-2 (0-5) Ur Squamous Epith Cells Moderate A (None-Few) Urine Bacteria None (None) Discharge Plan Discharge Clinical Impression: Cough Patient Disposition: Home, Self-Care Condition: Stable Instructions: Acute Cough (ED) Additional Instructions: Prednisone as directed Symptomatic care Rest Fluids Follow-up with primary care as needed. Activity Level: No Restrictions Discharge Diet: Regular Prescriptions: No Action trazodone 50 mg tablet 50 mg PO Patient Comments: TAKE ONE TABLET BY MOUTH AT BEDTIME sertraline 100 mg tablet 100 mg PO Patient Comments: TAKE TWO TABLETS BY MOUTH DAILY rosuvastatin 40 mg tablet 40 mg PO Patient Comments: Take 1 Tablet by mouth at bedtime ezetimibe 10 mg tablet 10 mg PO Patient Comments: Take 1 Tablet by mouth once daily buspirone 10 mg tablet 10 mg PO Patient Comments: TAKE TWO TABLETS BY MOUTH TWICE DAILY albuterol sulfate [Ventolin HFA] 90 mcg/actuation HFA aerosol inhaler 2 puff inhalation Patient Comments: Inhale 1-2 Puffs by mouth every 6 hours if needed for Wheezing azelastine 0.05 % drops ophthalmic (eye) Patient Comments: INSTILL ONE DROP INTO EACH EYE TWICE DAILY Ozempic 1 mg/dose (4 mg/3 mL) pen injector 1 mg subcut Repatha SureClick 140 mg/mL pen injector 1 mg subcut Q2W albuterol sulfate 2.5 mg /3 mL (0.083 %) solution for nebulization 2.5 mg inhalation Q4-6H PRNQty: 75 0RF albuterol sulfate 90 mcg/actuation HFA aerosol inhaler 2 inh inhalation Q2-3H PRN (Reason: shortness of breath or wheezing) Qty: 8.5 1RF Paxlovid 300 mg (150 mg x 2)-100 mg tablets,dose pack See Rx Instructions .ROUTE .COMPLEX Qty: 30 0RF Rx Instructions: take TWO 150 mg tablets of nirmatrelvir with ONE 100 mg tablet of ritonavir twice daily for 5 days Follow Up/Referrals: Casandra Lopez PA-C [Primary Care Provider, Family Practice] Stand Alone Forms: Appnique Info Instructions
[2025-05-23 10:15] LABS: Appearance Urine Clear (Clear)
[2025-05-23 11:27] VITALS: BP 102/50; PULSE 82; RESP 22
== END 2025-05-23 11:28 | disposition home or self-care (01) ==
PROVIDERS: Emergency Provider Internal Medicine; PCP Physician Assistant
DX: R05.9 Cough, unspecified (principal); R10.9 Unspecified abdominal pain; F17.210 Nicotine dependence, cigarettes, uncomplicated
CPT/HCPCS: 71046; 81001; 81003; 99283; 99284